=== PATIENT | female | born 1955 | race Hispanic/Latino ===

== ENCOUNTER 2017-05-22 20:06 | Inpatient (IN) | payer MEDICARE ==
[~2017-05-22] VITALS: Ht 154.9 cm; Wt 82.1 kg
--- NOTE | 2017-05-22 21:23 | Diagnostic Imaging Report ---
EXAM: CHEST SINGLE (PORTABLE), AP 1 view ORDER DATE: 05/22/2017 8:41 PM Time stamp on exam: 2103 hours INDICATION: Chest pain, shortness of breath COMPARISON: None FINDINGS: LINES/TUBES: None LUNGS: No consolidations or edema. PLEURA: No effusions or pneumothorax. HEART AND MEDIASTINUM: Normal size and contour. BONES AND SOFT TISSUES: No acute findings. IMPRESSION: No acute thoracic abnormality. Signed by: Dr. Laura Franklin M.D. on 05/22/2017 9:20 PM
[2017-05-22 23:02] LABS: BASOPHILS % 0.4 % (0.0-1.0); EOSINOPHILS # (AUTO) 0.3 (0.0-0.4); EOSINOPHILS % 3.7 % (0.0-6.0); HEMATOCRIT 32.2 % (34.2-44.1); HEMOGLOBIN 10.2 g/dL (12.0-16.0); LYMPHOCYTES % 39.7 % (18.0-39.1); MEAN CORPUSCULAR HEMOGLOBIN 32.6 pg (28-32); MEAN CORPUSCULAR HGB CONC 31.7 g/dL (31-35); MEAN CORPUSCULAR VOLUME 102.9 fL (81-99); MONOCYTES # (AUTO) 0.5 (0.2-0.8); NEUTROPHILS # (AUTO) 3.8 (2.1-6.9); NEUTROPHILS % 48.9 % (38.7-80.0); PLATELET COUNT 236 x10e3/uL (140-360); RED BLOOD COUNT 3.13 x10e6/uL (3.6-5.1); RED CELL DISTRIBUTION WIDTH 14.8 % (11.7-14.4)
[2017-05-22 23:28] LABS: ALBUMIN 3.8 g/dL (3.5-5.0); ALBUMIN/GLOBULIN RATIO 0.8 (0.8-2.0); CALCIUM 9.6 mg/dL (8.4-10.2); CREATININE, SERUM 9.9 mg/dL (0.57-1.11)
[2017-05-22 23:40] LABS: CREATINE KINASE MB 4.3 ng/mL (0-5.0)
[2017-05-22] MEDS ORDERED: DEXTROSE 50% SYRINGE 50 ML IV STA (23:42)
[2017-05-22] MEDS ORDERED: CALCIUM CHLORIDE 10% 1.36 MEQ/ML 10ML SYR IV STA (23:42)
[2017-05-22] MEDS ORDERED: SODIUM BICARBONATE 8.4% INJ 50 ML SYR IV STA (23:42)
[2017-05-22] MEDS ORDERED: INSULIN REGULAR, HUMAN 100 UNIT/1 ML 3ML VIAL IV ONE (23:45)
[2017-05-22] MEDS ORDERED: SOD POLYSTYRENE SULFONATE SUSP 15 GM/60 ML BTL PO ONE (23:45)
[2017-05-23] MEDS ORDERED: SODIUM CHLORIDE 0.9% 50ML 50 ML ONE (00:02)
[2017-05-23] MEDS ORDERED: ASPIRIN 81 MG CHEW TAB PO ONE (00:15)
[2017-05-23] MEDS ORDERED: NITROGLYCERIN 2% OINT 1 GM PKT TOP ONE (01:00)
[2017-05-23] MEDS: PROPOFOL IV EMULSION 10MG/ML 100 ML IV PRN ×2 (01:20→08:52)
--- NOTE | 2017-05-23 01:46 | Diagnostic Imaging Report ---
EXAM: CHEST SINGLE (PORTABLE), AP 1 view ORDER DATE: 05/23/2017 1:11 AM Time stamp on exam: 0133 hours INDICATION: Status post endotracheal tube placement COMPARISON: AP view of the chest May 22, 2017 FINDINGS: LINES/TUBES: Endotracheal tube terminates 4 cm above the iker. LUNGS: Interstitial edema, slightly increased from prior exam. Bibasilar atelectasis. PLEURA: No effusions or pneumothorax. HEART AND MEDIASTINUM: Stable appearance. BONES AND SOFT TISSUES: No acute findings. IMPRESSION: The endotracheal tube terminates 4 cm above the iker. Slight interval worsening interstitial edema. Signed by: Dr. Laura Franklin M.D. on 05/23/2017 1:43 AM
--- NOTE | 2017-05-23 04:21 | Diagnostic Imaging Report ---
EXAM: CT CHEST WO ORDER DATE: 05/23/2017 12:40 AM Time stamp on exam: 0356 hours INDICATION: Shortness of breath, respiratory distress COMPARISON: None TECHNIQUE: Multidetector CT scanning of the chest was performed. Coronal and sagittal multiplanar reformations were obtained. Routine protocol performed. IV Contrast: None CTDIvol has been reviewed. It is below the limits set by the Radiation Protocol Committee (RPC). FINDINGS: LUNGS AND AIRWAYS: The endotracheal tube is 3 cm above the iker. Bilateral interstitial thickening and faint bilateral groundglass opacities. Bibasilar bronchial thickening and peribronchial ground glass opacity/small consolidations. Similar findings in the posterior aspect of the bilateral upper lungs to a lesser extent. PLEURA: Small bilateral pleural effusions. HEART, MEDIASTINUM, VESSELS: The heart is within normal size limits. Dense coronary artery calcifications. No thoracic aortic aneurysm. UPPER ABDOMEN: Partially visualized moderate distention of the stomach. Tiny layering calcified gallstones. MUSCULOSKELETAL: No acute findings. IMPRESSION: Mild pulmonary edema and small bilateral pleural effusions. Possible superimposed aspiration in the dependent portions of the bilateral upper and lower lobes. Signed by: Dr. Laura Franklin M.D. on 05/23/2017 4:18 AM
--- NOTE | 2017-05-23 04:23 | Diagnostic Imaging Report ---
EXAM: VQ LUNG SCAN VENT PERFUSION DATE: 05/22/2017 12:00 AM Time stamp on exam: 0404 hours INDICATION: Shortness of breath, patient ventilated COMPARISON: AP view of the chest May 23, 2017 FINDINGS: No ventilation images obtained. Perfusion images of the lungs in multiple projections were obtained following intravenous administration of 6mCi of Tc-99m MAA. Distribution of tracer activity is mildly irregular throughout the lungs. There are no segmental perfusion defects of any size. IMPRESSION: Scan findings represent a very low probability for acute pulmonary embolic disease based on the PIOPED II criteria. Signed by: Dr. Laura Franklin M.D. on 05/23/2017 4:19 AM
[2017-05-23] MEDS ORDERED: SUCCINYLCHOLINE 200 MG/10 ML SYR IV ONE (04:30)
[2017-05-23] MEDS ORDERED: SODIUM CHLORIDE FLUSH 10 ML SYR INJ PRN (04:30)
[2017-05-23] MEDS ORDERED: ONDANSETRON HCL INJ 2 MG/ML VIAL IV PRN (04:30)
[2017-05-23] MEDS ORDERED: ETOMIDATE 2 MG/ML 10 ML INJ IV ONE (04:30)
[2017-05-23] MEDS ORDERED: DEXTROSE 50% SYRINGE 50 ML IV PRN (04:30)
--- OUTSIDE RECORDS SUMMARY | 2017-05-23 04:42 | XMS REPORT ---
Author Author [facility] Address Unknown Phone Unavailable Care Team Providers Care Office Asst Name Role Phone DANILO ALTAMIRANO Unavailable Unavailable Problems This patient has no known problems. Allergies, Adverse Reactions, Alerts This patient has no known allergies or adverse reactions. Medications This patient has no known medications. Results Test Description Test Time Test Comments Text Results Atomic Results Result Comments CHEST SINGLE (PORTABLE) [address] [address] Patient Name: OLGA SANCHEZ MR #: [id number] : 1955 Age/Sex: 61/F Req #: [id number] Adm Physician: Ordered by: DANILO ALTAMIRANO MD Report #: [id number] Location: ER Room/Bed: ___ Procedure: [id number] DX/CHEST SINGLE (PORTABLE) Exam Date: 05/23/17 Exam Time: 0130 REPORT STATUS: Signed EXAM: CHEST SINGLE (PORTABLE), AP 1 view ORDER DATE: 05/23/2017 1:11 AM Time stamp on exam: 0133 hours INDICATION: Status post endotracheal tube placement COMPARISON: AP view of the chest May 22, 2017 FINDINGS: LINES/TUBES : Endotracheal tube terminates 4 cm above the iker. LUNGS: Interstitial edema, slightly increased from prior exam. Bibasilar atelectasis. PLEURA : No effusions or pneumothorax. HEART AND MEDIASTINUM: Stable appearance. BONES AND SOFT TISSUES: No acute findings. IMPRESSION: The endotracheal tube terminates 4 cm above the iker. Slight interval worsening interstitial edema. Signed by: Dr. Anurag Franklin M.D. on 05/23/2017 1:43 AM Dictated By: ANURAG FRANKLIN MD 2 Transcribed By: CLOVIS on 142 COPY TO: DANILO ALTAMIRANO MD CT CHEST WO [place] [address] Patient Name: OLGA SANCHEZ MR #: [id number] : 1955 Age/Sex: 61/F Req #: [id number] Adm Physician: Ordered by: DANILO ALTAMIRANO MD Report # : [id number] Location: ER Room/Bed: Procedure: [id number] CT/CT CHEST WO Exam Date: Exam Time: REPORT STATUS: Signed EXAM: CT CHEST WO ORDER DATE: 05/23/2017 12:40 AM Time stamp on exam: 0356 hours INDICATION: Shortness of breath, respiratory distress COMPARISON: None TECHNIQUE: Multidetector CT scanning of the chest was performed. Coronal and sagittal multiplanar reformations were obtained. Routine protocol performed. IV Contrast: None CTDIvol has been reviewed. It is below the limits set by the Radiation Protocol Committee (RPC) . FINDINGS: LUNGS AND AIRWAYS: The endotracheal tube is 3 cm above the iker. Bilateral interstitial thickening and faint bilateral groundglass opacities. Bibasilar bronchial thickening and peribronchial ground glass opacity/small consolidations. Similar findings in the posterior aspect of the bilateral upper lungs to a lesser extent. PLEURA: Small bilateral pleural effusions. HEART, MEDIASTINUM, VESSELS: The heart is within normal size limits. Dense coronary artery calcifications. No thoracic aortic aneurysm. UPPER ABDOMEN: Partially visualized moderate distention of the stomach. Tiny layering calcified gallstones. MUSCULOSKELETAL: No acute findings. IMPRESSION: Mild pulmonary edema and small bilateral pleural effusions. Possible superimposed aspiration in the dependent portions of the bilateral upper and lower lobes. Signed by: Dr. Anurag Franklin M.D. on 05/23/2017 4:18 AM Dictated By: ANURAG FRANKLIN MD 7 Transcribed By: CLOVIS on 417 COPY TO: DANILO ALTAMIRANO MD CHEST SINGLE (PORTABLE) [place] [address] Patient Name: OLGA SANCHEZ MR #: [id number] : 1955 Age/Sex: 61/F Req #: [id number] Adm Physician: Ordered by: DANILO ALTAMIRANO MD Report #: [id number] Location: ER Room/Bed: ___ Procedure: [id number] DX/CHEST SINGLE (PORTABLE) Exam Date: 05/22/17 Exam Time: 2100 REPORT STATUS: Signed EXAM: CHEST SINGLE (PORTABLE), AP 1 view ORDER DATE: 05/22/2017 8:41 PM Time stamp on exam: 2103 hours INDICATION: Chest pain, shortness of breath COMPARISON: None FINDINGS: LINES/TUBES: None LUNGS: No consolidations or edema. PLEURA: No effusions or pneumothorax. HEART AND MEDIASTINUM: Normal size and contour. BONES AND SOFT TISSUES: No acute findings. IMPRESSION: No acute thoracic abnormality. Signed by: Dr. Anurag Franklin M.D. on 05/22/2017 9:20 PM Dictated By: ANURAG FRANKLIN MD 19 Transcribed By: CLOVIS on 05/22/172119 COPY TO: DANILO ALTAMIRANO MD VQ LUNG SCAN VENT PERFUSION [place] [address] Patient Name: OLGA SANCHEZ MR #: [id number] : 1955 Age/Sex: 61/F Req #: [id number] [facility] Physician: Ordered by: DANILO ALTAMIRANO MD Report #: [id number] Location: ER Room/Bed: ___ Procedure: [id number] NM/VQ LUNG SCAN VENT PERFUSION Exam Date: Exam Time: REPORT STATUS: Signed EXAM: VQ LUNG SCAN VENT PERFUSION DATE: 05/22/2017 12:00 AM Time stamp on exam: 0404 hours INDICATION: Shortness of breath, patient ventilated COMPARISON: AP view of the chest May 23, 2017 FINDINGS: No ventilation images obtained. Perfusion images of the lungs in multiple projections were obtained following intravenous administration of 6mCi of Tc-99m MAA. Distribution of tracer activity is mildly irregular throughout the lungs. There are no segmental perfusion defects of any size. IMPRESSION: Scan findings represent a very low probability for acute pulmonary embolic disease based on the PIOPED II criteria. Signed by: Dr. Anurag Franklin M.D. on 05/23/2017 4:19 AM Dictated By: ANURAG FRANKLIN MD 8 Transcribed By: CLOVIS on 418 COPY TO: DANILO ALTAMIRANO MD
[2017-05-23 05:03] LABS: BASOPHILS % 0.3 % (0.0-1.0); EOSINOPHILS # (AUTO) 0.2 (0.0-0.4); EOSINOPHILS % 2.2 % (0.0-6.0); HEMATOCRIT 30.6 % (34.2-44.1); HEMOGLOBIN 9.6 g/dL (12.0-16.0); LYMPHOCYTES # (AUTO) 2.2 (1.0-3.2); LYMPHOCYTES % 22.3 % (18.0-39.1); MEAN CORPUSCULAR HGB CONC 31.4 g/dL (31-35); MONOCYTES % 9.7 % (4.4-11.3); NEUTROPHILS # (AUTO) 6.4 (2.1-6.9); NEUTROPHILS % 65.1 % (38.7-80.0); PLATELET COUNT 206 x10e3/uL (140-360); RED CELL DISTRIBUTION WIDTH 15.2 % (11.7-14.4)
[2017-05-23 05:24] LABS: CREATINE KINASE MB 12.4 ng/mL (0-5.0)
[2017-05-23 05:59] LABS: ALBUMIN 3.4 g/dL (3.5-5.0); ALBUMIN/GLOBULIN RATIO 0.8 (0.8-2.0); ANION GAP 23.1 mmol/L (8-16); CALCIUM 9.7 mg/dL (8.4-10.2); CREATININE, SERUM 10.12 mg/dL (0.57-1.11)
[2017-05-23 06:00] LABS: POTASSIUM 6.1 mmol/L (3.5-5.1)
[2017-05-23] MEDS: INSULIN REGULAR, HUMAN 100 UNIT/1 ML 3ML VIAL SQ SCH ×4 (08:43→21:00)
[2017-05-23] MEDS ORDERED: CEFTRIAXONE SOD 1 GM VIAL IV SCH (10:00)
[2017-05-23] MEDS: ASPIRIN 300 MG SUPP PR SCH (10:20)
--- NOTE | 2017-05-23 11:10 | History and Physical ---
HPI: She is a 61-year-old female patient who has ESRD, patient on hemodialysis, diabetes mellitus, and hypertension, presented to the emergency room with chest pain and shortness of breath that started yesterday at 3 p.m. Patient was having central chest pain and subsequently, patient was admitted in the emergency room. While patient was in the emergency room, patient had acute respiratory distress and patient needed to be intubated in the emergency room as patient was having severe respiratory distress and patient was in flash pulmonary edema. PAST MEDICAL HISTORY: Diabetes mellitus, hypertension, and end-stage renal disease. PAST SURGICAL HISTORY: AV fistula. SOCIAL HISTORY: Denies smoking. Denies using alcohol. MEDICATIONS: See from the list. ALLERGIES: NO KNOWN DRUG ALLERGIES. FAMILY HISTORY: Diabetes mellitus. REVIEW OF SYSTEMS: Patient is orally intubated, not able to participate in review of system examinations. PHYSICAL EXAMINATION VITAL SIGNS: Temperature 99, pulse rate 92, [id number], blood pressure 140/70. HEENT: Normocephalic, atraumatic. Patient was orally intubated. NECK: JVD present. LUNGS: Bilateral equal fair air entry. Basal rales present. Rhonchi present. HEART: S1, S2 regular, systolic murmur present. ABDOMEN: Soft. Bowel sounds are present. NEUROLOGIC: No focal neurological deficit. EXTREMITIES: No edema. ADMITTING IMPRESSION AND DIAGNOSES 1. Acute respiratory failure with acute pulmonary edema. 2. Acute diastolic congestive heart failure, suspect ischemia. 3. Hyperkalemia. 4. Patient has possibility of aspiration. PLAN: Patient will be admitted with above diagnoses. Patient will have emergent hemodialysis. Patient will be on the ventilator and we will obtain pulmonary consultation with Dr. Collier and cardiology consultation with Dr. Lowe. Patient had a stat 2D echo done. Patient will be also given IV Rocephin and nephrology, Dr. Gong and Dr. Miramontes will dialyze the patient. Job#: [id number] VAS
--- NOTE | 2017-05-23 11:28 | Consultation ---
DATE OF CONSULTATION: May 23, 2017 CARDIOLOGY CONSULTATION REQUESTING PHYSICIAN: Dr. Scott REASON FOR CONSULTATION: Elevated troponin. HPI: This is a 61-year-old female that presented with shortness of breath. According to the medical record, she stated she was having pressure and tightness at the center of her chest with no radiation on a scale of 5 out of 10 that started yesterday, and it is still constant. She was brought to the emergency room for evaluation. In the ER, she was reintubated to maintain the airway. Troponin was elevated, and cardiology was consulted. She has a history of end-stage renal disease on dialysis. EKG showed normal sinus rhythm with non-ST abnormalities. BNP 865 and troponin 2.9. PAST MEDICAL HISTORY: Hypertension, diabetes, end-stage renal disease on dialysis. PAST SURGICAL HISTORY: AV fistula to the left arm. FAMILY HISTORY: Positive for hypertension. SOCIAL HISTORY: No smoking. No drinking. MEDICATIONS: See med list. ALLERGIES: SHE IS NOT ALLERGIC TO ANY MEDICATION. REVIEW OF SYSTEMS: Unable to obtain. She is intubated and sedated. PHYSICAL EXAMINATION VITALS: Temperature 98, heart rate 71, respirations 18, blood pressure 149/81, oxygen saturation 100% on mechanical ventilation. GENERAL: She is intubated and sedated. HEENT: Mucous membranes moist. NECK: Supple. LUNGS: Bilateral with decreased breath sounds. CARDIOVASCULAR: S1, S2 present. ABDOMEN: Soft. EXTREMITIES: No edema. NEUROLOGIC: Unable to assess, intubated and sedated. LABS: Sodium 143, potassium 6.1, chloride 103, CO2 23, BUN 74, creatinine 10.12. Glucose 124. White blood cells 9.80. Hemoglobin 9.6, hematocrit 30.6, platelets 206. IMPRESSION 1. Acute respiratory failure. 2. Elevated troponin. 3. Possible fluid overload. 4. Hypertension. 5. Diabetes. 6. End-stage renal disease on dialysis. 7. Pulmonary edema with small bilateral pleural effusions from x-ray. 8. Anemia of chronic disease. ASSESSMENT AND PLAN: She is intubated and sedated. Possible cardiac catheterization when stable. Elevated BNP could be related to renal. Will get an echo to assess the LV and valve function. She is pending dialysis for the high potassium. Further cardiac workup pending clinical course. Thank you for this consultation. Dictated by John Crews NP Job#: [id number] MH
--- NOTE | 2017-05-23 11:44 | Consultation ---
DATE OF CONSULTATION: PULMONARY CONSULTATION REASON FOR THE CONSULT: Ventilator management, ICU management. HPI: Ms. Bailey is a 61-year-old female who is intubated and sedated. The source of history is the chart. Patient has history of end-stage renal disease and is on hemodialysis, came in with shortness of breath and possibly was in fluid overload. She became suddenly short of breath. She was complaining of chest tightness and chest pressure in the emergency room and that started around 3 p.m.. She came to the emergency room at around 8 o'clock. She became lethargic and possibly passed out; however, never lost pulse and patient was intubated for respiratory failure, possible aspiration, and pulmonary edema. Currently, she is on a ventilator with FiO2 of 50%, PEEP of 0, and tidal volume of 500 and she is getting hemodialysis. REVIEW OF SYSTEMS: Unable to elicit any because the patient is intubated and sedated. PAST MEDICAL HISTORY: Hypertension, end-stage renal disease, patient has history of diabetes. PAST SURGICAL HISTORY: Unknown. SOCIAL HISTORY: Unknown history of smoking, not in the records and patient is intubated and sedated. FAMILY HISTORY: Unknown family history as patient is intubated and sedated. PHYSICAL EXAMINATION VITALS: Temperature 98.4, pulse of 74, blood pressure 134/80, respiratory rate of 20. She is on mechanical ventilator with FiO2 of 500, PEEP of 0, respiratory rate of 14. HEENT: Head atraumatic, normocephalic. NECK: Supple. No JVD. She is intubated. CHEST: Clear to auscultation bilaterally. Crackles in the bases. HEART: S1, S2 audible. No murmurs, gallops, or rub. ABDOMEN: Soft, nontender, nondistended. EXTREMITIES: No clubbing, cyanosis, or edema. NEUROLOGICAL: She is sedated, intubated on propofol. LABORATORY DATA: White count of 7.6, hemoglobin 10.2, platelets 236. Chemistry; sodium 143, potassium 6.1, chloride 103, BUN 74, creatinine 10.12. Troponin 2.918, CK-MB 12.40, CK 377, BNP 56. Chest CT, which was done in the emergency room I reviewed the images is showing mild evidence of pulmonary edema; however, showing atelectasis on the bases. I have reviewed the images, looks like that she probably aspirated. ASSESSMENT AND PLAN: Ms. Bailey is a 61-year-old female, came in with shortness of breath, chest pain, increased troponin. Patient became short of breath. CT of the chest showing evidence of bilateral lower lobe atelectasis versus aspiration, currently intubated and sedated. 1. Acute hypoxic respiratory failure. There is no blood gas and I will increase the PEEP to 5, reduce the tidal to 420, and keep the respiratory rate of 14. Patient was observed at bedside and she has been doing well on this setting. I will do an ABG. 2. Possible lty-CV-mkstaxddp myocardial infarction. As patient's troponin was high, cardiology has been consulted. 3. End-stage renal disease, fluid overload. Patient is getting hemodialysis. 4. Hyperkalemia. Patient will be getting hemodialysis. 5. Iv zosyn, DC rocephin 6. Continue the patient on propofol for sedation for now. Hopefully, we will start weaning in a.m. once the patient is stable. 7. Will start the patient on Pepcid for gastrointestinal prophylaxis. Critical care time spent 45 minutes. Job#: [id number] KONG GOMEZ
[2017-05-23 11:52] LABS: ABG PCO2 41 mmHg (41-51); ABG PH 7.45 (7.31-7.41); ABG PO2 146 mmHg (80-105)
[2017-05-23 11:53] LABS: ABG HCO3 29 mmol/L (23-28)
[2017-05-23 12:54] LABS: CREATINE KINASE MB 9.6 ng/mL (0-5.0)
--- NOTE | 2017-05-23 14:08 | Consultation ---
DATE OF CONSULTATION: May 23, 2017 RENAL CONSULT HISTORY OF PRESENT ILLNESS: This is a 61-year-old female with end-stage renal disease on hemodialysis Monday//Monday, who came in last night with complaints of shortness of breath since 3 p.m. While she was in the emergency room, she developed flash pulmonary edema and was intubated. PAST MEDICAL HISTORY: Includes 1. Hypertension. 2. Type 2 diabetes mellitus. 3. ESRD. PAST SURGICAL HISTORY: AV fistula. SOCIAL HISTORY: No smoking, no alcohol, no drugs. ALLERGIES: NO KNOWN ALLERGIES. MEDICATIONS: Please see list. REVIEW OF SYSTEMS: Unable to get from the patient. PHYSICAL EXAMINATION GENERAL: Patient is sedated, currently intubated. VITAL SIGNS: Systolic blood pressure 90. Pulse ox 100%. HEENT: Pupils equal, reactive to light and accommodation. NECK: No JVD, no bruit. LUNGS: No rhonchi, no rales. HEART: Regular rate and rhythm. No S3, no S4. ABDOMEN: Nontender, nondistended. No hepatosplenomegaly. EXTREMITIES: No clubbing, no cyanosis, no edema. LABS: White count 9.8, hemoglobin 9.6, hematocrit 30.6. Blood gas: pH 7.45, pCO2 of 41. Sodium 143, potassium 6.1, BUN 74, creatinine 10. CHEST X-RAY: Slight interval worsening with interstitial edema. CT OF CHEST: Mild pulmonary edema and small bilateral pleural effusion. Possible superimposed aspiration. LUNG SCAN: Very low pulmonary embolism. ASSESSMENT AND PLAN 1. End-stage renal disease with hyperlipidemia. The patient will be dialyzed today and monitored on blood pressure. 2. Pulmonary edema, question flash pulmonary edema. Will ultrafiltrate but is currently not tolerating more than 2.5 liters of ultrafiltration secondary to hypotension. 3. We will check for flu. 4. Currently troponin I at 2.9, CK 377. That was at 4 in the morning, but at 12:20 her troponin I is up to 6, CK-MB down to 9.6. We will follow. Cardiology and Pulmonary are following at this time. Job#: [id number] EV
[2017-05-23] MEDS: PIPER-TAZ 3.375 GM 50 ML IV SCH (16:07)
--- NOTE | 2017-05-23 16:29 | Diagnostic Imaging Report ---
PROCEDURE: A single AP view of the chest. COMPARISON: Chest x-ray 05/23/2017 at 1:33 INDICATIONS: S/P HEMODIALYSIS FINDINGS: Lines/tubes: Tip of the endotracheal tube is unchanged. Nasogastric tube is new and courses below the diaphragm. Lungs: Lungs are hypoinflated. Perihilar air space opacities are slightly increased. Pleura: There is no pleural effusion or pneumothorax. Heart and mediastinum: The heart and the mediastinum are unremarkable. Bones: No acute bony abnormality. IMPRESSION: 1. New NG tube tip coursing below the diaphragm. 2. Slight decrease in lung aeration. Slight increase in perihilar pulmonary edema. Dictated by: Tk Tay M.D. on 05/23/2017 at 16:28 Electronically approved by: Tk Tay M.D. on 05/23/2017 at 16:28
[2017-05-23] MEDS ORDERED: ENOXAPARIN SOD INJ 40 MG/0.4 ML SYR SC SCH (17:00)
[2017-05-24] VITALS (54 sets, daily range): BP systolic 70–162; BP diastolic 30–82
[2017-05-24] MEDS: PIPER-TAZ 3.375 GM 50 ML IV SCH ×2 (00:11→08:32)
[2017-05-24] MEDS: PROPOFOL IV EMULSION 10MG/ML 100 ML IV PRN (03:37)
[2017-05-24 06:04] LABS: BASOPHILS % 0.2 % (0.0-1.0); EOSINOPHILS # (AUTO) 0.1 (0.0-0.4); EOSINOPHILS % 0.7 % (0.0-6.0); HEMATOCRIT 27.6 % (34.2-44.1); HEMOGLOBIN 9.1 g/dL (12.0-16.0); LYMPHOCYTES # (AUTO) 1.7 (1.0-3.2); LYMPHOCYTES % 19.7 % (18.0-39.1); MEAN CORPUSCULAR VOLUME 97.2 fL (81-99); MONOCYTES # (AUTO) 0.9 (0.2-0.8); MONOCYTES % 9.9 % (4.4-11.3); PLATELET COUNT 163 x10e3/uL (140-360); RED BLOOD COUNT 2.84 x10e6/uL (3.6-5.1); RED CELL DISTRIBUTION WIDTH 15.3 % (11.7-14.4)
[2017-05-24 06:21] LABS: ALBUMIN 3.1 g/dL (3.5-5.0); ALBUMIN/GLOBULIN RATIO 0.8 (0.8-2.0); ANION GAP 19.7 mmol/L (8-16); CALCIUM 8.5 mg/dL (8.4-10.2); CREATININE, SERUM 6.67 mg/dL (0.57-1.11); POTASSIUM 3.7 mmol/L (3.5-5.1)
[2017-05-24] MEDS: INSULIN REGULAR, HUMAN 100 UNIT/1 ML 3ML VIAL SQ SCH (07:51)
[2017-05-24] MEDS: ASPIRIN 300 MG SUPP PR SCH (09:00)
[2017-05-24] MEDS ORDERED: LIDOCAINE HCL 2% LOCAL 20 ML VIAL ONE ×2 (09:11→09:44)
[2017-05-24] MEDS ORDERED: IOPAMIDOL 370 MG/ML 200 ML INFUS..BTL INJ ONE ×2 (09:11→09:21)
[2017-05-24] MEDS ORDERED: HEPARIN SOD/SOD CHLORIDE 2,000 ML ONE (09:11)
[2017-05-24] MEDS ORDERED: IOPAMIDOL 300MG/ML 50ML INFUS..BTL IV ONE (10:00)
[2017-05-24] MEDS ORDERED: PROPOFOL IV EMULSION 10 MG/ML 20 ML VIAL ONE (10:53)
[2017-05-24 11:25] LABS: CREATINE KINASE MB 1.6 ng/mL (0-5.0)
[2017-05-24] MEDS ORDERED: METOPROLOL TARTRATE 25 MG TAB PO SCH (17:00)
--- NOTE | 2017-05-24 17:43 | Operative Report ---
DATE OF PROCEDURE: May 24, 2017 PROCEDURES PERFORMED: Cardiac catheterization. INDICATIONS: Mye-DR-uyijbcxev myocardial infarction. DESCRIPTION OF PROCEDURE: After informed consent, patient was brought to the cardiac catheterization laboratory and placed on the table. Both groins were painted and draped in a sterile fashion. Lidocaine was injected in the right groin for local anesthesia. Right femoral artery was accessed by Seldinger technique, and a 5-Icelandic sheath was placed in the right femoral artery. Left main artery was cannulated using a JL4, 5-Icelandic catheter. Coronary angiogram was performed, and images were obtained in multiple views. The right coronary artery was cannulated using a 3DRC 5-Icelandic catheter. Coronary angiogram was performed, and images were obtained in multiple views. LV-gram was performed using a pigtail catheter. Patient had an arteriogram, and the arteriotomy site was closed using a Vascade closure device. Patient tolerated the procedure without any complications. REPORT: LEFT MAIN: Is of normal caliber and tapers off in its distal portion and has about a 50% distal lesion. LEFT ANTERIOR DESCENDING: Normal caliber. Has mild diffuse disease throughout its course with a short segment of 60% to 70% mid lesion. LEFT CIRCUMFLEX: Is of large caliber and has an 80% ostial lesion. The obtuse marginal branch is a large branch. The circumflex itself is a narrow branch after the obtuse marginal branch and has an 80% lesion after the origin of the obtuse marginal branch. RIGHT CORONARY ARTERY: Is of normal caliber, is diffusely diseased with diffuse luminal irregularities. Distally the artery tapers off and is a very narrow caliber vessel. The posterior descending artery is also a very narrow caliber vessel. LV-GRAM: Anterior wall hypokinesis is noted. Overall ejection fraction is about 50%. HEMODYNAMICS: The aortic pressure is 153/68. LV pressure 144/11. LVEDP is 14. PLAN: CABG. Job#: [id number] DARSHANA GOMEZ
[2017-05-24] MEDS ORDERED: DEXTROSE 50% SYRINGE 50 ML IV PRN (17:45)
[2017-05-24] MEDS ORDERED: PROPOFOL IV EMULSION 10 MG/ML 20 ML VIAL IV SCH (18:00)
[2017-05-24] MEDS ORDERED: PROPOFOL IV EMULSION 10MG/ML 100 ML ONE (18:28)
[2017-05-24] MEDS ORDERED: PROPOFOL IV EMULSION 10 MG/ML 20 ML VIAL IV PRN (19:45)
[2017-05-24] MEDS ORDERED: PROPOFOL IV EMULSION 10MG/ML 100 ML IV SCH (20:00)
[2017-05-24] MEDS ORDERED: ACETAMINOPHEN 325 MG/10 ML UDC NG PRN (20:30)
[2017-05-24] MEDS ORDERED: PROPOFOL IV EMULSION 10MG/ML 100 ML IV PRN (20:45)
[2017-05-24] MEDS ORDERED: ATORVASTATIN 20 MG TAB NG SCH (21:00)
[2017-05-24] MEDS ORDERED: INSULIN REGULAR, HUMAN 100 UNIT/1 ML 3ML VIAL SQ SCH (21:00)
[2017-05-24] MEDS ORDERED: PIPER-TAZ 3.375 GM 50 ML IV SCH (22:00)
[2017-05-25] MEDS ORDERED: INSULIN REGULAR, HUMAN 100 UNIT/1 ML 3ML VIAL SQ SCH
[2017-05-25] MEDS ORDERED: ASPIRIN 325 MG TAB NG SCH (09:00)
[2017-05-25] MEDS ORDERED: METOPROLOL TARTRATE 25 MG TAB PO SCH (09:00)
== END 2017-05-24 23:50 | disposition short-term general hospital (02) | DRG 280 ==
LOC: ER 20:06 → ICU 05-23 04:34 → UNDOADMIN 05-23 04:39 → ERHOLD 05-23 04:39 → ICU 05-23 13:55 → ERHOLD 05-23 13:55 → UNDOADMIN 05-24 13:16 → ICU 05-24 13:16 → UNDODISIN 05-24 23:50
PROVIDERS: ADMIT Internal Medicine; ATTEND Internal Medicine
PROC: 5A1935Z Respiratory Ventilation, Less than 24 Consecutive Hours (ICD-10-PCS; 2017-05-23)
PROC: 0BH17EZ Insertion of Endotracheal Airway into Trachea, Via Natural or Artificial Opening (ICD-10-PCS; 2017-05-23)
PROC: 5A1D70Z Performance of Urinary Filtration, Intermittent, Less than 6 Hours Per Day (ICD-10-PCS; 2017-05-23)
PROC: B2111ZZ Fluoroscopy of Multiple Coronary Arteries using Low Osmolar Contrast (ICD-10-PCS; principal; 2017-05-24)
PROC: 4A023N7 Measurement of Cardiac Sampling and Pressure, Left Heart, Percutaneous Approach (ICD-10-PCS; principal; 2017-05-24)
PROC: B2151ZZ Fluoroscopy of Left Heart using Low Osmolar Contrast (ICD-10-PCS; 2017-05-24)
DX: I21.4 Non-ST elevation (NSTEMI) myocardial infarction (principal); I50.33 Acute on chronic diastolic (congestive) heart failure; J96.01 Acute respiratory failure with hypoxia; I13.2 Hypertensive heart and chronic kidney disease with heart failure and with stage 5 chronic kidney disease, or end stage renal disease; N18.6 End stage renal disease; E11.22 Type 2 diabetes mellitus with diabetic chronic kidney disease; I27.9 Pulmonary heart disease, unspecified; Z99.2 Dependence on renal dialysis; Z79.4 Long term (current) use of insulin; E87.5 Hyperkalemia; D63.8 Anemia in other chronic diseases classified elsewhere; E87.8 Other disorders of electrolyte and fluid balance, not elsewhere classified; I25.10 Atherosclerotic heart disease of native coronary artery without angina pectoris
CPT/HCPCS: 31500; 36140; 36415; 36600; 71045; 71250; 77002; 78582; 80053; 82550; 82553; 82805; 82948; 83880; 84484; 85025; 85379; 87040; 87086; 87340; 87400; 93005; 93306; 93452; 93458; 94002; 94003; 99285; J1650; J2001; J2543; Q9967

== ENCOUNTER 2018-03-09 17:24 | Emergency (ER) | payer SELFPAY ==
[~2018-03-09] VITALS: Ht 154.9 cm; Wt 82.1 kg
--- OUTSIDE RECORDS SUMMARY | 2018-03-09 17:27 | XMS REPORT | Clinical Summary ---
Author Author [facility] Organization [facility] Address Unknown Phone Unavailable Care Team Providers Care Tie Knitter Helper Name Role Phone Leo Jeter MD PCP Allergies Comments Active Allergy Reactions Severity Noted Date Ciprofloxacin 05/31/2017 Medications End Date Status Medication Sig Dispensed Refills Start Date Active hydrALAZINE (APRESOLINE) Take 50 mg by 0 50 MG tablet mouth 3 (three) times a day. 07/06/2017 atorvastatin (LIPITOR) 40 Take 1 tablet 30 tablet 0 MG tablet (40 mg total) 8 by mouth nightly for 30 days. 07/06/2017 metoprolol tartrate Take 1 tablet 60 tablet 0 (LOPRESSOR) 25 mg tablet (25 mg total) 8 by mouth 2 (two) times a day for 30 days. 07/06/2017 omega-3 acid ethyl esters Take 2 120 capsule 0 (LOVAZA) 1 gram capsule capsules (2 g 8 total) by mouth 2 (two) times a day for 30 days. 07/06/2017 aspirin 81 mg chewable Chew 1 tablet 30 tablet 0 tablet (81 mg total) 8 daily for 30 days. 07/06/2017 insulin 70/30 NPH and Inject 30 10 mL 12 regular human (NovoLIN Units under 8 70/30 U-100 Insulin) 100 the skin 3 unit/mL (70-30) injection (three) times a day for 30 days. Active Problems Problem Noted Date Uncontrolled type 2 diabetes mellitus with chronic kidney disease on 06/02/2017 chronic dialysis, with long-term current use of insulin Other hyperlipidemia 06/02/2017 S/P CABG x 2 05/31/2017 Pulmonary insufficiency 05/25/2017 NSTEMI (non-ST elevated myocardial infarction) 05/25/2017 CAD, multiple vessel 05/25/2017 ESRD on hemodialysis 05/25/2017 Anemia associated with chronic renal failure 05/25/2017 Essential hypertension 05/25/2017 Coronary artery disease 05/25/2017 Resolved Problems Problem Noted Date Resolved Date Coffee ground material from NGT 05/25/2017 05/31/2017 Encounters Care Team Description Date Type Specialty Nathaniel FerrellCHRISTOPHER 05/31/2017 Anesthesia Cardiothoracic Surgery Event Danilo Lala MD CABx2: MOREJON-->LAD, Ao-->OM 05/31/2017 Surgery Cardiothoracic Surgery Laurel Warren 05/31/2017 Telephone Cardiology Danilo Lala MD 05/26/2017 Documentation Cardiovascular Daniel Alonso MD Patel, Sachin P., MD Pulmonary insufficiency (Primary Dx) 05/25/2017 Hospital Cardiology - Encounter 06/06/2017 after 03/08/2017 Family History Medical History Relation Name Comments Diabetes Other Relation Name Status Comments Other Social History Date Tobacco Use Types Packs/Day Years Used Former Smoker Cigarettes 1 Smokeless Tobacco: Never Used Comments: quit 20 yrs. ago Alcohol Use Drinks/Week oz/Week Comments No Sex Assigned at Date Recorded Not on file Industry Job Start Date Occupation Not on file Not on file Not on file Travel End Travel History Travel Start No recent travel history available. Last Filed Vital Signs Time Taken Vital Sign Reading 06/06/2017 11:00 AM CDT Blood Pressure 133/65 06/06/2017 11:00 AM CDT Pulse 66 06/06/2017 11:00 AM CDT Temperature 36 C (96.8 F) 06/06/2017 11:00 AM CDT Respiratory Rate 16 06/06/2017 3:18 AM CDT Oxygen Saturation 97% - Inhaled Oxygen - Concentration 06/06/2017 4:20 AM CDT Weight 76.7 kg (169 lb 3.2 oz) 05/31/2017 11:44 AM MOTOR INSTALLER Height 157.5 cm (5' 2") 06/06/2017 4:20 AM CDT Body Mass Index 30.95 Plan of Treatment Health Maintenance Due Date Last Done Comments DIABETIC RETINAL EYE EXAM 1956 DIABETIC FOOT EXAM 1966 CERVICAL CANCER SCREENING 1977 BREAST CANCER SCREENING 2006 COLON CANCER SCREENING 2006 SHINGLES VACCINES (1 of 2006 2) INFLUENZA VACCINE 10/25/2017 Implants Device Identifier Shelf Expiration Date Model / Serial / Lot Implanted Type Area Manufactur er 02/28/2019 [id number] / / Lead Pace Phu Mycrdl Unipol Tmpry Cardiovasc N/A: N/A [employer] Streamline - [id number] ular [place] - Implanted: Qty: 1 on 05/31/2017 by Implants CARDIAC Danilo Lala MD SRGRY 02/28/2019 [id number] / / Lead Pace Phu Mycrdl Unipol Tmpry Cardiovasc N/A: N/A [employer] Streamline - [id number] ular [place] - Implanted: Qty: 1 on 05/31/2017 by Implants CARDIAC Danilo Lala MD SRGRY 02/08/2019 [id number] / / Lead Pace Phu Mycrdl Unipol Tmpry Cardiovasc N/A: N/A [employer] Streamline - [id number] ular [place] - Implanted: Qty: 1 on 05/31/2017 by Implants CARDIAC Danilo Lala MD SRGRY 02/28/2019 [id number] / / Lead Pace Phu Mycrdl Unipol Tmpry Cardiovasc N/A: N/A [employer] Streamline - [id number] ular [place] - Implanted: Qty: 1 on 05/31/2017 by Implants CARDIAC Danilo Lala MD SRGRY 10/11/2021 [id number] / / Clip Ligtng Weck Hemoclip Plus W/ Medical N/A: N/A TELEFLEX Tape Ti Med - [id number] Clips for MEDICAL Implanted: Qty: 1 on 05/31/2017 by Internal Danilo Lala MD Use 01/10/2022 [id number] / / Clip Ligtng [place] Hemoclip Plus W/ Medical N/A: N/A TELEFLEX Tape Ti Lg - [id number] Clips for MEDICAL Implanted: Qty: 1 on 05/31/2017 by Internal Danilo Lala MD Use 08/24/2021 [id number] / / Drain Wnd 19fr Rnd Hbls W/ 1/4in Surgical N/A: N/A ETHICON Bendbl Trocar Kelly Ashutosh Wht - Implants; DIV OF [id number] Expanders; ANN & Implanted: Qty: 1 on 05/31/2017 by Extenders; Danilo Cutler MD Surgical Wires 02/21/2022 [id number] / / [id number] [place] Perph Vasclr Ptfe 1.2x10cm Vascular N/A: N/A BARD 1.65mm - [id number] Graft PERIPHERAL Implanted: Qty: 1 on 05/31/2017 by VASCULAR Danilo Lala MD Procedures Comments Procedure Name Priority Date/Time Associated Diagnosis POC GLUCOSE Routine 06/06/2017 12:25 PM CDT POC GLUCOSE Routine 06/06/2017 10:12 AM CDT POC GLUCOSE Routine 06/05/2017 9:06 PM CDT POC GLUCOSE Routine 06/05/2017 6:33 PM CDT HEMODIALYSIS Routine 06/05/2017 3:59 PM CDT POC GLUCOSE Routine 06/05/2017 12:36 PM CDT POC GLUCOSE Routine 06/05/2017 8:02 AM CDT ZZESTIMATED GFR Routine 06/05/2017 4:00 AM CDT HC COMPLETE BLD COUNT Routine 06/05/2017 W/AUTO DIFF 4:00 AM CDT BASIC METABOLIC PANEL Routine 06/05/2017 4:00 AM CDT POC GLUCOSE Routine 06/04/2017 8:44 PM CDT POC GLUCOSE Routine 06/04/2017 5:25 PM CDT POC GLUCOSE Routine 06/04/2017 12:03 PM CDT POC GLUCOSE Routine 06/04/2017 7:37 AM CDT POC GLUCOSE Routine 06/04/2017 6:26 AM CDT ZZESTIMATED GFR Routine 06/04/2017 4:00 AM CDT LIPID PANEL Routine 06/04/2017 4:00 AM CDT T4, FREE Routine 06/04/2017 4:00 AM CDT THYROID STIMULATING Routine 06/04/2017 HORMONE 4:00 AM CDT VITAMIN D 25 HYDROXY Routine 06/04/2017 LEVEL 4:00 AM CDT HC COMPLETE BLD COUNT Routine 06/04/2017 W/AUTO DIFF 4:00 AM CDT BASIC METABOLIC PANEL Routine 06/04/2017 4:00 AM CDT POC GLUCOSE Routine 06/03/2017 6:39 PM MOTOR INSTALLER POC GLUCOSE Routine 06/03/2017 6:14 PM MOTOR INSTALLER HEMODIALYSIS Routine 06/03/2017 2:41 PM MOTOR INSTALLER HC COMPLETE BLD COUNT Routine 06/03/2017 W/AUTO DIFF 2:17 PM MOTOR INSTALLER POC GLUCOSE Routine 06/03/2017 11:33 AM MOTOR INSTALLER ECG 12-LEAD Routine 06/03/2017 8:01 AM MOTOR INSTALLER POC GLUCOSE Routine 06/03/2017 7:12 AM MOTOR INSTALLER ZZESTIMATED GFR Routine 06/03/2017 4:00 AM MOTOR INSTALLER BASIC METABOLIC PANEL Routine 06/03/2017 4:00 AM MOTOR INSTALLER POC GLUCOSE Routine 06/02/2017 8:50 PM MOTOR INSTALLER POC GLUCOSE Routine 06/02/2017 6:02 PM MOTOR INSTALLER POC GLUCOSE Routine 06/02/2017 12:00 PM MOTOR INSTALLER ECG 12-LEAD Routine 06/02/2017 8:49 AM MOTOR INSTALLER POC GLUCOSE Routine 06/02/2017 7:05 AM MOTOR INSTALLER CBC HEMOGRAM Routine 06/02/2017 4:00 AM MOTOR INSTALLER ZZESTIMATED GFR Routine 06/02/2017 12:00 AM MOTOR INSTALLER PHOSPHORUS LEVEL Routine 06/02/2017 12:00 AM MOTOR INSTALLER IONIZED CALCIUM Routine 06/02/2017 12:00 AM MOTOR INSTALLER MAGNESIUM LEVEL Routine 06/02/2017 12:00 AM MOTOR INSTALLER BASIC METABOLIC PANEL Routine 06/02/2017 12:00 AM MOTOR INSTALLER POC GLUCOSE Routine 06/01/2017 7:29 PM MOTOR INSTALLER POC GLUCOSE Routine 06/01/2017 6:08 PM MOTOR INSTALLER HEMODIALYSIS Routine 06/01/2017 1:40 PM MOTOR INSTALLER POC GLUCOSE Routine 06/01/2017 11:39 AM MOTOR INSTALLER XR CHEST 1 VW PORTABLE STAT 06/01/2017 9:39 AM MOTOR INSTALLER POC GLUCOSE Routine 06/01/2017 7:28 AM MOTOR INSTALLER XR CHEST 1 VW PORTABLE Routine 06/01/2017 7:05 AM MOTOR INSTALLER POTASSIUM, SYRINGE Routine 06/01/2017 6:26 AM MOTOR INSTALLER ECG 12-LEAD Routine 06/01/2017 5:14 AM MOTOR INSTALLER POC GLUCOSE Routine 06/01/2017 4:03 AM MOTOR INSTALLER POC GLUCOSE Routine 06/01/2017 1:41 AM MOTOR INSTALLER HC COMPLETE BLD COUNT Routine 06/01/2017 W/AUTO DIFF 1:15 AM MOTOR INSTALLER ZZESTIMATED GFR Routine 06/01/2017 12:51 AM MOTOR INSTALLER IONIZED CALCIUM Routine 06/01/2017 12:51 AM MOTOR INSTALLER PHOSPHORUS LEVEL Routine 06/01/2017 12:51 AM MOTOR INSTALLER MAGNESIUM LEVEL Routine 06/01/2017 12:51 AM MOTOR INSTALLER BASIC METABOLIC PANEL Routine 06/01/2017 12:51 AM MOTOR INSTALLER PARTIAL THROMBOPLASTIN Routine 06/01/2017 TIME (PTT) 12:30 AM MOTOR INSTALLER PROTHROMBIN TIME WITH INR Routine 06/01/2017 12:30 AM MOTOR INSTALLER POC GLUCOSE Routine 06/01/2017 12:22 AM MOTOR INSTALLER ECG 12-LEAD Routine 05/31/2017 8:23 PM MOTOR INSTALLER POC GLUCOSE Routine 05/31/2017 7:53 PM MOTOR INSTALLER XR CHEST 1 VW PORTABLE Routine 05/31/2017 7:48 PM MOTOR INSTALLER IONIZED CALCIUM, ARTERIAL Routine 05/31/2017 6:32 PM MOTOR INSTALLER ARTERIAL BLOOD GAS Routine 05/31/2017 6:32 PM MOTOR INSTALLER PARTIAL THROMBOPLASTIN Routine 05/31/2017 TIME (PTT) 6:32 PM MOTOR INSTALLER PROTHROMBIN TIME WITH INR Routine 05/31/2017 6:32 PM MOTOR INSTALLER HC COMPLETE BLD COUNT Routine 05/31/2017 W/AUTO DIFF 6:32 PM MOTOR INSTALLER ZZESTIMATED GFR Routine 05/31/2017 6:21 PM MOTOR INSTALLER PHOSPHORUS LEVEL Routine 05/31/2017 6:21 PM MOTOR INSTALLER MAGNESIUM LEVEL Routine 05/31/2017 6:21 PM MOTOR INSTALLER BASIC METABOLIC PANEL Routine 05/31/2017 6:21 PM MOTOR INSTALLER POC GLUCOSE Routine 05/31/2017 6:20 PM MOTOR INSTALLER GLUCOSE LEVEL, SYRINGE STAT 05/31/2017 5:45 PM MOTOR INSTALLER MAGNESIUM LEVEL STAT 05/31/2017 5:45 PM MOTOR INSTALLER HEMOGLOBIN, SYRINGE STAT 05/31/2017 5:45 PM MOTOR INSTALLER IONIZED CALCIUM, ARTERIAL STAT 05/31/2017 5:45 PM MOTOR INSTALLER POTASSIUM, SYRINGE STAT 05/31/2017 5:45 PM MOTOR INSTALLER SODIUM LEVEL, SYRINGE STAT 05/31/2017 5:45 PM MOTOR INSTALLER ARTERIAL BLOOD GAS, STAT 05/31/2017 CORRECTED 5:45 PM MOTOR INSTALLER PLATELET COUNT STAT 05/31/2017 4:54 PM MOTOR INSTALLER PROTHROMBIN TIME WITH INR STAT 05/31/2017 4:54 PM MOTOR INSTALLER FIBRINOGEN STAT 05/31/2017 4:54 PM MOTOR INSTALLER IONIZED CALCIUM, ARTERIAL STAT 05/31/2017 4:54 PM MOTOR INSTALLER GLUCOSE LEVEL, SYRINGE STAT 05/31/2017 4:54 PM MOTOR INSTALLER HEMOGLOBIN, SYRINGE STAT 05/31/2017 4:54 PM MOTOR INSTALLER POTASSIUM, SYRINGE STAT 05/31/2017 4:54 PM MOTOR INSTALLER SODIUM LEVEL, SYRINGE STAT 05/31/2017 4:54 PM MOTOR INSTALLER ARTERIAL BLOOD GAS, STAT 05/31/2017 CORRECTED 4:54 PM MOTOR INSTALLER TRANSFUSE RED BLOOD CELLS Routine 05/31/2017 4:19 PM MOTOR INSTALLER IONIZED CALCIUM, ARTERIAL STAT 05/31/2017 4:12 PM MOTOR INSTALLER GLUCOSE LEVEL, SYRINGE STAT 05/31/2017 4:12 PM MOTOR INSTALLER POTASSIUM, SYRINGE STAT 05/31/2017 4:12 PM MOTOR INSTALLER HEMOGLOBIN, SYRINGE STAT 05/31/2017 4:12 PM MOTOR INSTALLER SODIUM LEVEL, SYRINGE STAT 05/31/2017 4:12 PM MOTOR INSTALLER ARTERIAL BLOOD GAS, STAT 05/31/2017 CORRECTED 4:12 PM MOTOR INSTALLER TRANSFUSE RED BLOOD CELLS Routine 05/31/2017 3:49 PM MOTOR INSTALLER GLUCOSE LEVEL, SYRINGE STAT 05/31/2017 3:42 PM MOTOR INSTALLER IONIZED CALCIUM, ARTERIAL STAT 05/31/2017 3:42 PM MOTOR INSTALLER HEMOGLOBIN, SYRINGE STAT 05/31/2017 3:42 PM MOTOR INSTALLER POTASSIUM, SYRINGE STAT 05/31/2017 3:42 PM MOTOR INSTALLER SODIUM LEVEL, SYRINGE STAT 05/31/2017 3:42 PM MOTOR INSTALLER ARTERIAL BLOOD GAS, STAT 05/31/2017 CORRECTED 3:42 PM MOTOR INSTALLER GLUCOSE LEVEL, SYRINGE STAT 05/31/2017 3:15 PM MOTOR INSTALLER IONIZED CALCIUM, ARTERIAL STAT 05/31/2017 3:15 PM MOTOR INSTALLER HEMOGLOBIN, SYRINGE STAT 05/31/2017 3:15 PM MOTOR INSTALLER POTASSIUM, SYRINGE STAT 05/31/2017 3:15 PM MOTOR INSTALLER ARTERIAL BLOOD GAS, STAT 05/31/2017 CORRECTED 3:15 PM MOTOR INSTALLER SODIUM LEVEL, SYRINGE STAT 05/31/2017 3:15 PM MOTOR INSTALLER ANESTHESIA KAYLEN Routine 05/31/2017 2:42 PM MOTOR INSTALLER Procedure Note - Miguel Oro MD - 05/31/2017 2:42 PM MOTOR INSTALLER Procedure Performed: KAYLEN Start Time: End Time: Preanesth esia Checklist: Patient identified , IV assessed, risks and benefits discussed, monitors and equipment assessed, procedure being performed at surgeon's request, anesthesia consent obtained. General Procedure Informatio n Diagnostic Indication s for Echo: hemodynami c monitoring Physician Requesting Echo: DANILO LALA Location performed: OR Intubated Bite block placed Heart visualized Probe Insertion: Easy Probe Type: Multiplane Modalities : Color flow mapping, continuous wave Doppler and pulse wave Doppler Echocardi ographic and Doppler Measuremen ts Ventricle s Right Ventricle: Cavity size normal. Hypertroph y not present. Thrombus not present. Global function normal. Left Ventricle: Cavity size normal. Thrombus not present. Ejection Fraction 50%. Valves Aortic Valve: Annulus normal. Stenosis not present. Regurgitat ion absent. Leaflets normal. Leaflet motions normal. Mitral Valve: Annulus normal. Stenosis not present. Regurgitat ion +1. Leaflets normal. Leaflet motions normal. Tricuspid Valve: Annulus normal. Stenosis not present. Regurgitat ion +1. Leaflets normal. Leaflet motions normal. Aorta Ascending Aorta: Size normal. Dissection not present. Plaque thickness less than 3 mm. Mobile plaque not present. Aortic Arch: Size normal. Dissection not present. Plaque thickness less than 3 mm. Mobile plaque not present. Descending Aorta: Size normal. Dissection not present. Mobile plaque not present. Atria Right Atrium: Size normal. Spontaneou s echo contrast not present. Thrombus not present. Tumor not present. Device not present. Left Atrium: Size dilated. Spontaneou s echo contrast not present. Thrombus not present. Tumor not present. Device not present. Left atrial appendage normal. Septa Atrial Septum: Intra-atri al septal morphology normal. Ventricul ar Septum: Intra-vent ricular septum morphology normal. Other Findings Pericardiu m: normal Pleural Effusion: none Anesthesia Informatio n Performed with residents and CRNAs Anesthesio logist: MIGUEL ORO Resident/ DIPLOMATIC INTERPRETER/AA: MARILEE MCMILLAN Echocardi ogram Comments: Pre op: Normal LV size and function. EF 50-55%. Normal RV size and function. Mildly dilated LA. Trileaflet AV with no or AI. Trace MR and trace TR. Mild MAC. No pericardia l effusion or aortic dissection seen. GLUCOSE LEVEL, SYRINGE STAT 05/31/2017 2:01 PM MOTOR INSTALLER IONIZED CALCIUM, ARTERIAL STAT 05/31/2017 2:01 PM MOTOR INSTALLER HEMOGLOBIN, SYRINGE STAT 05/31/2017 2:01 PM MOTOR INSTALLER POTASSIUM, SYRINGE STAT 05/31/2017 2:01 PM MOTOR INSTALLER SODIUM LEVEL, SYRINGE STAT 05/31/2017 2:01 PM MOTOR INSTALLER ARTERIAL BLOOD GAS, STAT 05/31/2017 CORRECTED 2:01 PM MOTOR INSTALLER PA CATHETER Routine 05/31/2017 1:45 PM MOTOR INSTALLER Procedure Note - Miguel Oro MD - 05/31/2017 1:45 PM MOTOR INSTALLER PA catheter Performed by: MIGUEL ORO Authorized by: MIGUEL ORO Procedure details: CENTRAL LINE Routine 05/31/2017 1:35 PM MOTOR INSTALLER Procedure Note - Miguel Oro MD - 05/31/2017 1:35 PM MOTOR INSTALLER Central line Performed by: MIGUEL ORO Authorized by: MIGUEL ORO Patient Location: OR Staff: Anesthesio logist: MIGUEL ORO Resident/C RNA/AA: NATHANIEL FERRELL Performed by: Resident/C RNA/AA and anesthesio logist Preprocedu re:patient identified , IV checked, site and side verified, risks and benefits discussed, procedure verified, surgical consent complete, patient position confirmed, monitors and equipment checked and pre-op evaluation complete MSBT: antiseptic used during central venous catheter insertion, all elements of maximal sterile barrier technique followed, hand hygiene performed prior to central venous catheter insertion, cap/gown used by other personnel during central venous catheter insertion, solutions labeled and all ports not used during insertion clamped Indication s: Indication s: Central pressure monitoring and vascular access Anesthesia : Anesthesia : General Procedure details: Patient position: Trendelenb urg Catheter Type: Double lumen Catheter Size: 9 Fr Catheter Site: subclavian vein Catheter site laterality : Left Ultrasound guidance used: Yes Ultrasound image saved: Yes Number of attempts: 1 Successful placement: Yes Guidewire removal witnessed by: MIGUEL ORO Post-proce dure: Post-proce dure: line sutured, sterile dressing applied per protocol and ports flushed with saline Post-proce dure: Blood cleaned with CHG and sterile caps on all hubs Assessment : Blood return through all ports and free fluid flow Patient tolerance: Patient tolerated the procedure well with no immediate complicati ons Notes: Unsuccessf ul R IJ attempt (unable to pass wire with good flow), so aborted and L subclavian placed ARTERIAL LINE Routine 05/31/2017 1:21 PM MOTOR INSTALLER Procedure Note - Nathaniel Ferrell CRNA - 05/31/2017 1:21 PM MOTOR INSTALLER Arterial line Performed by: NATHANIEL FERRELL Authorized by: MIGUEL ORO Patient Location: Pre-op (Placed by resident in preop area) Start Time: 05/31/2017 12:45 PM Staff: Performed by: Resident/C ORIANA/AA Pre-proced ure: patient identified , IV checked, site and side verified, risks and benefits discussed, procedure verified, surgical consent complete, patient position confirmed, monitors and equipment checked and pre-op evaluation complete MSBT: antiseptic used, all elements of maximal sterile barrier technique followed, hand hygiene performed, cap/gown used by other personnel and solutions labeled Indication s: Indication s: multiple ABGs and hemodynami c monitoring Anesthesia : Anesthesia : Local infiltrati on Procedure Details: Arterial Line placement: Placed pre-induct ion Line placement site: Radial Line placement side: Right Arterial line gauge: 20 G Number of attempts: 1 Post-proce dure: Post-proce dure: Sterile dressing applied Post procedure circulatio n, sensation, movement: Normal Patient tolerance: Patient tolerated the procedure well with no immediate complicati ons [place] AN ELECTIVE Routine 05/31/2017 ENDOTRACHEAL AIRWAY 1:20 PM MOTOR INSTALLER Procedure Note - Nathaniel Ferrell CRNA - 05/31/2017 1:20 PM MOTOR INSTALLER Airway Date/Time: 05/31/2017 1:20 PM Performed by: NATHANIEL FERRELL Authorized by: MIGUEL ORO Location: OR Urgency: Elective Difficult Airway: No Anesthesio logist: MIGUEL ORO Resident/C ORIANA/AA: NATHANIEL FERRELL Performed by: /Deborah GASTELUM/SHAKA Preoxygena juan with 100% O2: Yes C-spine Precaution s Maintained Throughout : Yes Mask Ventilatio n: Easy mask Final Airway Type: Endotrache al airway Final Endotrache al Airway: ETT Cuffed: Yes Technique Used: Direct laryngosco py Devices/Me thods Used in Placement: Intubatin g stylet Insertion Site: Oral Blade Type: Flores Laryngosco pe Blade/Vide olaryngosc ope Blade Size: 2 ETT Size (mm): 8.0 Cuff at minimum occlusion pressure: Yes Measured from: Lips ETT to Lips (cm): 20 Placement Verified by: CO2 detection, direct visualizat ion and equal breath sounds Laryngosco pic view: Grade I - full view of glottis Rapid Sequence Induction (RSI): No Modified RSI: No Number of Attempts at Approach: 1 Pt intubated without difficulty or trauma POC GLUCOSE Routine 05/31/2017 12:56 PM MOTOR INSTALLER ARTERIAL BLOOD GAS STAT 05/31/2017 9:40 AM MOTOR INSTALLER RESPIRATORY PATHOGEN Routine 05/31/2017 PANEL 9:35 AM MOTOR INSTALLER POTASSIUM LEVEL STAT 05/31/2017 8:35 AM MOTOR INSTALLER POC GLUCOSE Routine 05/31/2017 7:57 AM MOTOR INSTALLER POC GLUCOSE Routine 05/31/2017 5:43 AM MOTOR INSTALLER ZZESTIMATED GFR Routine 05/31/2017 5:32 AM MOTOR INSTALLER HC COMPLETE BLD COUNT Routine 05/31/2017 W/AUTO DIFF 5:32 AM MOTOR INSTALLER BASIC METABOLIC PANEL Routine 05/31/2017 5:32 AM MOTOR INSTALLER ECG 12-LEAD STAT 05/30/2017 11:05 PM MOTOR INSTALLER CK-MB Routine 05/30/2017 10:49 PM MOTOR INSTALLER CREATINE KINASE, TOTAL Routine 05/30/2017 (CPK) 10:49 PM MOTOR INSTALLER TROPONIN Routine 05/30/2017 10:49 PM MOTOR INSTALLER XR CHEST 1 VW PORTABLE STAT 05/30/2017 8:53 PM MOTOR INSTALLER POC GLUCOSE Routine 05/30/2017 8:45 PM MOTOR INSTALLER ARTERIAL BLOOD GAS STAT 05/30/2017 8:40 PM MOTOR INSTALLER POC GLUCOSE Routine 05/30/2017 6:47 PM MOTOR INSTALLER POC GLUCOSE Routine 05/30/2017 3:13 PM MOTOR INSTALLER POC GLUCOSE Routine 05/30/2017 2:23 PM MOTOR INSTALLER POC GLUCOSE Routine 05/30/2017 11:50 AM MOTOR INSTALLER PREPARE FRESH FROZEN Timed 05/30/2017 PLASMA 10:27 AM MOTOR INSTALLER PREPARE PLATELET PHERESIS Timed 05/30/2017 10:27 AM MOTOR INSTALLER PREPARE RBC Timed 05/30/2017 10:27 AM MOTOR INSTALLER TYPE AND SCREEN Timed 05/30/2017 10:27 AM MOTOR INSTALLER POC GLUCOSE Routine 05/30/2017 7:27 AM MOTOR INSTALLER ZZESTIMATED GFR Routine 05/30/2017 5:15 AM MOTOR INSTALLER HC COMPLETE BLD COUNT Routine 05/30/2017 W/AUTO DIFF 5:15 AM MOTOR INSTALLER BASIC METABOLIC PANEL Routine 05/30/2017 5:15 AM MOTOR INSTALLER POC GLUCOSE Routine 05/30/2017 5:03 AM MOTOR INSTALLER POC GLUCOSE Routine 05/30/2017 12:36 AM MOTOR INSTALLER POC GLUCOSE Routine 05/29/2017 9:23 PM MOTOR INSTALLER POC GLUCOSE Routine 05/29/2017 5:11 PM MOTOR INSTALLER HEMODIALYSIS Routine 05/29/2017 5:06 PM MOTOR INSTALLER XR CHEST 1 VW PORTABLE Routine 05/29/2017 11:29 AM MOTOR INSTALLER POC GLUCOSE Routine 05/29/2017 11:02 AM MOTOR INSTALLER POC GLUCOSE Routine 05/29/2017 7:41 AM MOTOR INSTALLER POC GLUCOSE Routine 05/29/2017 5:26 AM MOTOR INSTALLER ZZESTIMATED GFR Routine 05/29/2017 4:00 AM MOTOR INSTALLER BASIC METABOLIC PANEL Routine 05/29/2017 4:00 AM MOTOR INSTALLER POC GLUCOSE Routine 05/29/2017 12:21 AM MOTOR INSTALLER POC GLUCOSE Routine 05/28/2017 8:32 PM MOTOR INSTALLER POC GLUCOSE Routine 05/28/2017 4:56 PM MOTOR INSTALLER POC GLUCOSE Routine 05/28/2017 11:54 AM MOTOR INSTALLER POC GLUCOSE Routine 05/28/2017 7:58 AM MOTOR INSTALLER POC GLUCOSE Routine 05/28/2017 5:02 AM MOTOR INSTALLER POC GLUCOSE Routine 05/28/2017 1:04 AM MOTOR INSTALLER POC GLUCOSE Routine 05/27/2017 8:43 PM MOTOR INSTALLER POC GLUCOSE Routine 05/27/2017 5:27 PM MOTOR INSTALLER POC GLUCOSE Routine 05/27/2017 11:15 AM MOTOR INSTALLER POC GLUCOSE Routine 05/27/2017 7:48 AM MOTOR INSTALLER CBC HEMOGRAM Routine 05/27/2017 5:49 AM MOTOR INSTALLER TROPONIN Routine 05/27/2017 12:00 AM MOTOR INSTALLER ZZESTIMATED GFR Routine 05/27/2017 12:00 AM MOTOR INSTALLER PHOSPHORUS LEVEL Routine 05/27/2017 12:00 AM MOTOR INSTALLER IONIZED CALCIUM Routine 05/27/2017 12:00 AM MOTOR INSTALLER MAGNESIUM LEVEL Routine 05/27/2017 12:00 AM MOTOR INSTALLER BASIC METABOLIC PANEL Routine 05/27/2017 12:00 AM MOTOR INSTALLER POC GLUCOSE Routine 05/26/2017 8:59 PM MOTOR INSTALLER HEMODIALYSIS Routine 05/26/2017 4:51 PM MOTOR INSTALLER POC GLUCOSE Routine 05/26/2017 4:34 PM MOTOR INSTALLER POC GLUCOSE Routine 05/26/2017 11:35 AM MOTOR INSTALLER POC GLUCOSE Routine 05/26/2017 7:31 AM MOTOR INSTALLER POC GLUCOSE Routine 05/26/2017 3:02 AM MOTOR INSTALLER ZZESTIMATED GFR Routine 05/26/2017 2:00 AM MOTOR INSTALLER PHOSPHORUS LEVEL Routine 05/26/2017 2:00 AM MOTOR INSTALLER MAGNESIUM LEVEL Routine 05/26/2017 2:00 AM MOTOR INSTALLER IONIZED CALCIUM Routine 05/26/2017 2:00 AM MOTOR INSTALLER BASIC METABOLIC PANEL Routine 05/26/2017 2:00 AM MOTOR INSTALLER HC COMPLETE BLD COUNT Routine 05/26/2017 W/AUTO DIFF 1:50 AM MOTOR INSTALLER POC GLUCOSE Routine 05/25/2017 11:55 PM MOTOR INSTALLER POC GLUCOSE Routine 05/25/2017 7:49 PM MOTOR INSTALLER HEPATITIS B SURFACE Routine 05/25/2017 ANTIGEN 7:22 PM MOTOR INSTALLER HEMODIALYSIS Routine 05/25/2017 5:57 PM MOTOR INSTALLER ECHOCARDIOGRAM 2D STAT 05/25/2017 COMPLETE W MMODE SPECTRAL 5:47 PM MOTOR INSTALLER COLOR DOPPLER ([id number]) POC GLUCOSE Routine 05/25/2017 4:24 PM MOTOR INSTALLER HEMOGLOBIN & HEMATOCRIT Routine 05/25/2017 12:28 PM MOTOR INSTALLER TROPONIN Routine 05/25/2017 12:26 PM MOTOR INSTALLER POC GLUCOSE Routine 05/25/2017 11:56 AM MOTOR INSTALLER US CAROTID DUPLEX Routine 05/25/2017 BILATERAL 9:00 AM MOTOR INSTALLER POC GLUCOSE Routine 05/25/2017 7:19 AM MOTOR INSTALLER HEMOGLOBIN & HEMATOCRIT Timed 05/25/2017 5:37 AM MOTOR INSTALLER POC GLUCOSE Routine 05/25/2017 3:49 AM MOTOR INSTALLER [place] INSERT Routine 05/25/2017 Pulmonary insufficiency CATH,ART,PERCUT,SHORTTERM 2:52 AM MOTOR INSTALLER GRAM STAIN Routine 05/25/2017 2:45 AM MOTOR INSTALLER SPUTUM CULTURE Routine 05/25/2017 2:45 AM MOTOR INSTALLER BLOOD CULTURE, AEROBIC & Routine 05/25/2017 ANAEROBIC 2:30 AM MOTOR INSTALLER BLOOD CULTURE, AEROBIC & Routine 05/25/2017 ANAEROBIC 1:40 AM MOTOR INSTALLER URINALYSIS SCREEN AND Routine 05/25/2017 MICROSCOPY, WITH REFLEX 1:30 AM MOTOR INSTALLER TO CULTURE GRAM STAIN Routine 05/25/2017 1:30 AM MOTOR INSTALLER URINE CULTURE Routine 05/25/2017 1:30 AM MOTOR INSTALLER XR CHEST 1 VW PORTABLE STAT 05/25/2017 1:21 AM MOTOR INSTALLER ECG 12-LEAD STAT 05/25/2017 1:18 AM MOTOR INSTALLER IONIZED CALCIUM, ARTERIAL STAT 05/25/2017 1:05 AM MOTOR INSTALLER ARTERIAL BLOOD GAS STAT 05/25/2017 1:05 AM MOTOR INSTALLER TYPE AND SCREEN STAT 05/25/2017 1:00 AM MOTOR INSTALLER POC GLUCOSE Routine 05/25/2017 12:56 AM MOTOR INSTALLER ZZESTIMATED GFR STAT 05/25/2017 12:55 AM MOTOR INSTALLER THYROID STIMULATING STAT 05/25/2017 HORMONE 12:55 AM MOTOR INSTALLER HEMOGLOBIN A1C STAT 05/25/2017 12:55 AM MOTOR INSTALLER HEPATIC FUNCTION PANEL STAT 05/25/2017 12:55 AM MOTOR INSTALLER PROTHROMBIN TIME WITH INR STAT 05/25/2017 12:55 AM MOTOR INSTALLER PHOSPHORUS LEVEL STAT 05/25/2017 12:55 AM MOTOR INSTALLER PARTIAL THROMBOPLASTIN STAT 05/25/2017 TIME (PTT) 12:55 AM MOTOR INSTALLER MAGNESIUM LEVEL STAT 05/25/2017 12:55 AM MOTOR INSTALLER CBC HEMOGRAM STAT 05/25/2017 12:55 AM MOTOR INSTALLER BASIC METABOLIC PANEL STAT 05/25/2017 12:55 AM MOTOR INSTALLER after 03/08/2017 Results * POC glucose (06/06/2017 12:25 PM CDT) Only the most recent of 67 results within the time period is included. POC glucose 154 (H) 65 - 99 mg/dL [facility] DEPARTMENT OF Comment: PATHOLOGY AND [facility] Notified RN GENOMIC MEDICINE Meter ID: [id number] Pocket Builder: Armando Soto Performing Organization Address [facility] [place] [address] PATHOLOGY AND GENOMIC MEDICINE * Estimated GFR (06/05/2017 4:00 AM CDT) Only the most recent of 12 results within the time period is included. GFR Non Af Amer 6 (A) mL/min/1.73 m2 [facility] DEPARTMENT OF PATHOLOGY AND GENOMIC MEDICINE GFR Af Amer 7 (A) mL/min/1.73 m2 [facility] DEPARTMENT OF Comment: PATHOLOGY AND Chronic kidney disease: <60 GENOMIC MEDICINE mL/min/1.73m2 Kidney failure: <15 mL/min/1.73m2 The estimated GFR is calculated from the IDMS-traceable Modification of Diet in Renal Disease Equation. The accuracy of the calculation is poor when the creatinine is normal. Calculated values >90 mL/min/1.73m2 are not reported. This equation has not been validated in children (<18 years), women, the elderly (>70 years), or ethnic groups other than Caucasians and Americans. Specimen Plasma specimen Performing Organization Address City/[facility] Phone Number [place] [phone] PATHOLOGY AND GENOMIC MEDICINE * CBC with platelet and differential (06/05/2017 4:00 AM CDT) Only the most recent of 8 results within the time period is included. WBC 8.31 4.50 - 11.00 k/uL [facility] DEPARTMENT OF PATHOLOGY AND GENOMIC MEDICINE RBC 2.65 (L) 4.20 - 5.50 m/uL [facility] DEPARTMENT OF PATHOLOGY AND GENOMIC MEDICINE HGB 8.3 (L) 12.0 - 16.0 g/dL [facility] DEPARTMENT OF PATHOLOGY AND GENOMIC MEDICINE HCT 25.6 (L) 37.0 - 47.0 % [facility] DEPARTMENT OF PATHOLOGY AND GENOMIC MEDICINE MCV 96.6 82.0 - 100.0 fL [facility] DEPARTMENT OF PATHOLOGY AND GENOMIC MEDICINE MCH 31.3 27.0 - 34.0 pg [facility] DEPARTMENT OF PATHOLOGY AND GENOMIC MEDICINE MCHC 32.4 31.0 - 37.0 g/dL [facility] DEPARTMENT OF PATHOLOGY AND GENOMIC MEDICINE RDW - SD 50.9 37.0 - 55.0 fL [facility] DEPARTMENT OF PATHOLOGY AND GENOMIC MEDICINE MPV 10.0 8.8 - 13.2 fL [facility] DEPARTMENT OF PATHOLOGY AND GENOMIC MEDICINE Platelet count 306 150 - 400 k/uL [facility] DEPARTMENT OF PATHOLOGY AND GENOMIC MEDICINE Nucleated RBC 0.00 /100 WBC [facility] DEPARTMENT OF PATHOLOGY AND GENOMIC MEDICINE Neutrophils 64.0 39.0 - 69.0 % [facility] DEPARTMENT OF PATHOLOGY AND GENOMIC MEDICINE Lymphocytes 26.5 25.0 - 45.0 % [facility] DEPARTMENT OF PATHOLOGY AND GENOMIC MEDICINE Monocytes 7.9 0.0 - 10.0 % [facility] DEPARTMENT OF PATHOLOGY AND GENOMIC MEDICINE Eosinophils 0.7 0.0 - 5.0 % [facility] DEPARTMENT OF PATHOLOGY AND GENOMIC MEDICINE Basophils 0.2 0.0 - 1.0 % [facility] DEPARTMENT OF PATHOLOGY AND GENOMIC MEDICINE Immature granulocytes 0.7Comment: "Immature 0.0 - 1.0 % [facility] DEPARTMENT OF granulocytes" (promyelocytes, PATHOLOGY AND myelocytes, metamyelocytes) [facility] Specimen Blood Performing Organization Address City/State/Zipcode Phone Number [facility] DEPARTMENT OF [address] [place] [address] PATHOLOGY AND GENOMIC MEDICINE * Basic metabolic panel (06/05/2017 4:00 AM CDT) Only the most recent of 12 results within the time period is included. Sodium 132 (L) 135 - 148 mEq/L [facility] DEPARTMENT OF PATHOLOGY AND GENOMIC MEDICINE Potassium 4.0 3.5 - 5.0 mEq/L [facility] DEPARTMENT OF PATHOLOGY AND GENOMIC MEDICINE Chloride 88 (L) 98 - 112 mEq/L [facility] DEPARTMENT OF PATHOLOGY AND GENOMIC MEDICINE CO2 23 (L) 24 - 31 mEq/L [facility] DEPARTMENT OF PATHOLOGY AND GENOMIC MEDICINE Anion gap 21 (H) 7 - 15 mEq/L [facility] DEPARTMENT OF Comment: PATHOLOGY AND Starting from June [employer] [facility]ICINE , anion gap calculation no longer incorporates potassium. Please note the change. BUN 72 (H) 8 - 23 mg/dL [facility] DEPARTMENT OF PATHOLOGY AND GENOMIC MEDICINE Creatinine 7.2 (H) 0.5 - 0.9 mg/dL [facility] DEPARTMENT OF PATHOLOGY AND GENOMIC MEDICINE Glucose 208 (H) 65 - 99 mg/dL [facility] DEPARTMENT OF PATHOLOGY AND GENOMIC MEDICINE Calcium 8.5 (L) 8.8 - 10.2 mg/dL [facility] DEPARTMENT OF PATHOLOGY AND GENOMIC MEDICINE Specimen Plasma specimen Performing Organization Address [facility] [place] [address] PATHOLOGY AND GENOMIC MEDICINE * Vitamin D 25 hydroxy level (06/04/2017 4:00 AM CDT) Vitamin D, 25-hydroxy 8.4 (L) 30.0 - 150.0 ng/mL [facility] DEPARTMENT OF Comment: PATHOLOGY AND This assay reports the sum of GENOMIC MEDICINE 25-hydroxy vitamin D3 and 25-hydroxy vitamin D2. Reference range: 0-17 years: Deficiency: less than 20ng/mL Optimum level: greater than or equal to 20 ng/mL. 18 years and older: Deficiency: less than 20ng/mL Insufficiency: 20-29 ng/mL Optimum Level: 30-80 ng/mL The assay reportable range is 3.4155.9 ng/mL. Levels higher than 150 ng/mL may be associated with toxicity. If toxicity is clinically suspected and the reported result is >155.9 ng/mL,contact lab for alternative methods to obtain a definitivelevel. If separate quantitation of 25-hydroxy vitamin D3 and 25-hydroxy vitamin D2 is needed, please contact lab for alternative methods. Specimen Blood Performing Organization Address [facility] [place] [address] PATHOLOGY AND GENOMIC MEDICINE * Thyroid stimulating hormone (06/04/2017 4:00 AM CDT) Only the most recent of 2 results within the time period is included. TSH 0.97 0.27 - 4.20 uIU/mL [facility] DEPARTMENT OF PATHOLOGY AND GENOMIC MEDICINE Specimen Plasma specimen Performing Organization Address [facility] [address] PATHOLOGY AND GENOMIC MEDICINE * T4, free (06/04/2017 4:00 AM CDT) T4, free 1.3 0.9 - 1.7 ng/dL [facility] DEPARTMENT OF PATHOLOGY AND GENOMIC MEDICINE Specimen Plasma specimen Performing Organization Address [facility] Phone Number [facility] DEPARTMENT OF [address] [place] [address] PATHOLOGY AND GENOMIC MEDICINE * Lipid panel (06/04/2017 4:00 AM CDT) Cholesterol 174 <200 mg/dL [facility] DEPARTMENT OF PATHOLOGY AND GENOMIC MEDICINE Triglycerides 340 (H) <150 mg/dL [facility] DEPARTMENT OF PATHOLOGY AND GENOMIC MEDICINE HDL cholesterol 36 (L) >40 mg/dL [facility] DEPARTMENT OF PATHOLOGY AND GENOMIC MEDICINE LDL cholesterol 88Comment: Result obtained by <100 mg/dL [facility] DEPARTMENT OF direct LDL measurement PATHOLOGY AND GENOMIC MEDICINE Lipid panel SeeBelow [facility] DEPARTMENT OF interpretation Comment: PATHOLOGY AND Total Cholesterol GENOMIC MEDICINE (mg/dL) <200 Desirable 200-239Borderline -high >=240High Triglycerides (mg/dL) <150 Normal 150-199Borderline -high 200-499High >=500Very high HDL Cholesterol (mg/dL) <40Low (male) <40Low (female) LDL Cholesterol (mg/dL) <100 Optimal 100-129Near or above optimal 130-159Borderline -high 160-189High >=190Very high Risk Catergories that modify LDL goals. Risk Catergories LDL goal (mg/dL) CHD and CHD risk equivalent<100 (10-year risk >20%) Multiple (2+) risk factors <130 (10-year risk=<20%) 0-1 risk factors <160 (<10-year risk) Defining levels of lipids in metabolic syndrome Triglycerides >=150 mg/dL HDL Cholesterol Men <40 mg/dL Women <40 mg/dL Non-HDL cholesterol is a second target for therapy in persons with high triglycerides (>=200 mg/dL) Specimen Plasma specimen Performing Organization Address City/[facility] Phone Number [facility] DEPARTMENT OF [address] [place] [address] PATHOLOGY AND GENOMIC MEDICINE * ECG 12 lead (06/03/2017 8:01 AM MOTOR INSTALLER) Only the most recent of 6 results within the time period is included. Ventricular rate 74 [facility]USE Atrial rate 74 [facility] MUSE W[place] interval 116 [facility] QRSD interval 96 [facility] QT interval 410 [facility] QTC interval 455 [facility] P axis 1 44 [facility] MUSE QRS axis 1 -6 [facility] MUSE T wave axis 64 [facility] MUSE EKG impression Normal sinus rhythm-Normal [facility] MUSE ECG-In automated comparison with ECG of 02-JUN-2017 08:49,-No significant change was found- Performing Organization Address City/[facility]/Zipcode Phone Number [facility] [address] [place] [address] * CBC hemogram (06/02/2017 4:00 AM MOTOR INSTALLER) Only the most recent of 3 results within the time period is included. WBC 9.44 4.50 - 11.00 k/uL [facility] DEPARTMENT OF PATHOLOGY AND GENOMIC MEDICINE RBC 2.67 (L) 4.20 - 5.50 m/uL [facility] DEPARTMENT OF PATHOLOGY AND GENOMIC MEDICINE HGB 8.4 (L) 12.0 - 16.0 g/dL [facility] DEPARTMENT OF PATHOLOGY AND GENOMIC MEDICINE HCT 27.1 (L) 37.0 - 47.0 % [facility] DEPARTMENT OF PATHOLOGY AND GENOMIC MEDICINE MCV 101.5 (H) 82.0 - 100.0 fL [facility] DEPARTMENT OF PATHOLOGY AND GENOMIC MEDICINE MCH 31.5 27.0 - 34.0 pg [facility] DEPARTMENT OF PATHOLOGY AND GENOMIC MEDICINE MCHC 31.0 31.0 - 37.0 g/dL [facility] DEPARTMENT OF PATHOLOGY AND GENOMIC MEDICINE RDW - SD 59.6 (H) 37.0 - 55.0 fL [facility] DEPARTMENT OF PATHOLOGY AND GENOMIC MEDICINE MPV 10.1 8.8 - 13.2 fL [facility] DEPARTMENT OF PATHOLOGY AND GENOMIC MEDICINE Platelet count 192 150 - 400 k/uL [facility] DEPARTMENT OF PATHOLOGY AND GENOMIC MEDICINE Nucleated RBC 0.00 /100 WBC [facility] DEPARTMENT OF PATHOLOGY AND GENOMIC MEDICINE Specimen Blood Performing Organization Address [facility] Phone Number [facility] DEPARTMENT OF [address] [place] [phone] PATHOLOGY AND GENOMIC MEDICINE * Phosphorus level (06/02/2017 12:00 AM MOTOR INSTALLER) Only the most recent of 6 results within the time period is included. Phosphorus 7.9 (H) 2.4 - 4.5 mg/dL [facility] DEPARTMENT OF PATHOLOGY AND GENOMIC MEDICINE Specimen Plasma specimen Performing Organization Address City/[facility] Phone Number [facility] DEPARTMENT [address] [address] PATHOLOGY AND GENOMIC MEDICINE * Magnesium level (06/02/2017 12:00 AM MOTOR INSTALLER) Only the most recent of 7 results within the time period is included. Magnesium 2.8 (H) 1.6 - 2.4 mg/dL [facility] DEPARTMENT OF PATHOLOGY AND GENOMIC MEDICINE Specimen Plasma specimen Performing Organization Address City/[facility] Phone Number [facility] DEPARTMENT OF [address] [place] [address] PATHOLOGY AND GENOMIC MEDICINE * Ionized calcium (06/02/2017 12:00 AM MOTOR INSTALLER) Only the most recent of 4 results within the time period is included. pH 7.52 [facility] DEPARTMENT OF PATHOLOGY AND GENOMIC MEDICINE Ionized calcium 0.90 (L) 1.11 - 1.32 mmol/L [facility] DEPARTMENT OF PATHOLOGY AND GENOMIC MEDICINE Specimen Plasma specimen Performing Organization Address [facility] Phone Number [facility] DEPARTMENT OF [address] [place] [address] PATHOLOGY AND GENOMIC MEDICINE * XR Chest 1 Vw Portable (06/01/2017 9:39 AM MOTOR INSTALLER) Only the most recent of 6 results within the time period is included. Narrative Performed At EXAMINATION:XR CHEST 1 VW PORTABLE RADIANT CLINICAL HISTORY:chest tube removal COMPARISON: June 01, 2017 . IMPRESSION: 1.Heart size is normal. Median sternotomy wires overlie the midline. 2.There has been interval removal of a [place] catheter with a sheath remaining in place. 3.There is atelectasis in lung bases. No pneumothorax. Interstitial opacities have improved. 4.Osseous structures are intact. [facility]-[id number] Procedure Note Interface, Radiology Results Incoming - 06/01/2017 9:45 AM MOTOR INSTALLER EXAMINATION: XR CHEST 1 VW PORTABLE CLINICAL HISTORY: chest tube removal COMPARISON: June 01, 2017 . IMPRESSION: 1. Heart size is normal. Median sternotomy wires overlie the midline. 2. There has been interval removal of a [place]-Andreina catheter with a sheath remaining in place. 3. There is atelectasis in lung bases. No pneumothorax. Interstitial opacities have improved. 4. Osseous structures are intact. [facility]-[id number] Performing Organization Address [facility] Phone Number [facility] [address] [place] [address] * Potassium, syringe (06/01/2017 6:26 AM MOTOR INSTALLER) Only the most recent of 7 results within the time period is included. Potassium, syringe 6.3 (HH) 3.5 - 5.0 mEq/L [facility] DEPARTMENT OF Comment: PATHOLOGY AND Specimen is not hemolyzed. GENOMIC MEDICINE _K__results called to and read back by LIZET HAMMONDS/VIV (name/location) at06:3503 ___ (date/time) by PXN_. Specimen Blood Performing Organization Address City/[facility]/Zipcode Phone Number [facility] [place] [address] PATHOLOGY AND GENOMIC MEDICINE * Partial thromboplastin time, activated (06/01/2017 12:30 AM MOTOR INSTALLER) Only the most recent of 3 results within the time period is included. PTT 27.6 23.0 - 36.0 sec [facility] DEPARTMENT OF Comment: PATHOLOGY AND PTT therapeutic range for [facility] MEDICINE unfractionated heparin is 61.0-112.0 seconds which corresponds to Anti-Xa 0.3-0.7 U/ml. Specimen Blood Performing Organization Address [facility] [place] [address] PATHOLOGY AND [employer] [facility]INE * Prothrombin time with INR (06/01/2017 12:30 AM MOTOR INSTALLER) Only the most recent of 4 results within the time period is included. Prothrombin time 15.6 (H) 12.0 - 15.0 sec [facility] DEPARTMENT OF PATHOLOGY AND GENOMIC MEDICINE INR 1.2 [facility] DEPARTMENT OF Comment: PATHOLOGY AND The International Normalized [facility] MEDICINE Ratio (INR) is a therapeutic monitoring tool for patients who are stable on oral anticoagulant therapy. An INR of 2.0-3.0 is suggested for deep vein thrombosis/pulmonary embolism. Specimen Blood Performing Organization Address City/[facility]/Zipcode Phone Number [facility] [place] [address] PATHOLOGY AND [employer] MEDICINE * Ionized calcium, arterial (05/31/2017 6:32 PM MOTOR INSTALLER) Only the most recent of 8 results within the time period is included. Ionized calcium, arterial 1.13 1.11 - 1.32 mmol/L [facility] DEPARTMENT OF PATHOLOGY AND GENOMIC MEDICINE Specimen Blood Performing Organization Address City/[facility]/Zipcode Phone Number [facility] [place] [address] PATHOLOGY AND GENOMIC MEDICINE * Arterial blood gas (05/31/2017 6:32 PM MOTOR INSTALLER) Only the most recent of 4 results within the time period is included. pH, arterial 7.40 7.35 - 7.45 [facility] DEPARTMENT OF PATHOLOGY AND GENOMIC MEDICINE pCO2, arterial 37 35 - 45 mmHg [facility] DEPARTMENT OF PATHOLOGY AND GENOMIC MEDICINE pO2, arterial 130 (H) 80 - 90 mmHg [facility] DEPARTMENT OF PATHOLOGY AND GENOMIC MEDICINE Bicarbonate, arterial 22.7 21.0 - 28.0 mmol/L [facility] DEPARTMENT OF PATHOLOGY AND GENOMIC MEDICINE Base excess, arterial -1 -2 - 2 mEq/L [facility] DEPARTMENT OF PATHOLOGY AND GENOMIC MEDICINE O2 saturation, arterial 99 95 - 100 % [facility] DEPARTMENT OF PATHOLOGY AND GENOMIC MEDICINE Specimen Blood Performing Organization Address City/[facility] [place] [address] PATHOLOGY AND GENOMIC MEDICINE * Sodium level, syringe (05/31/2017 5:45 PM MOTOR INSTALLER) Only the most recent of 6 results within the time period is included. Sodium, syringe 135 135 - 148 mEq/L [facility] DEPARTMENT OF PATHOLOGY AND GENOMIC MEDICINE Specimen Blood Performing Organization Address City/[facility] [place] [address] PATHOLOGY AND GENOMIC [facility] * Hemoglobin, syringe (05/31/2017 5:45 PM MOTOR INSTALLER) Only the most recent of 6 results within the time period is included. Hemoglobin, syringe 9.5 (L) 12.0 - 16.0 g/dL [facility] DEPARTMENT OF PATHOLOGY AND GENOMIC MEDICINE Specimen Blood Performing Organization Address City/[facility] [place] [address] PATHOLOGY AND GENOMIC MEDICINE * Glucose level, syringe (05/31/2017 5:45 PM MOTOR INSTALLER) Only the most recent of 6 results within the time period is included. Glucose, syringe 165 (H) 65 - 99 mg/dL [facility] DEPARTMENT OF PATHOLOGY AND GENOMIC MEDICINE Specimen Blood Performing Organization Address City/[facility] [place] [address] PATHOLOGY AND GENOMIC MEDICINE * Arterial blood gas, corrected (05/31/2017 5:45 PM MOTOR INSTALLER) Only the most recent of 6 results within the time period is included. pH, arterial 7.34 (L) 7.35 - 7.45 [facility] DEPARTMENT OF PATHOLOGY AND GENOMIC MEDICINE pCO2, arterial 44 35 - 45 mmHg [facility] DEPARTMENT OF PATHOLOGY AND GENOMIC MEDICINE pO2, arterial 121 (H) 80 - 90 mmHg [facility] DEPARTMENT OF PATHOLOGY AND GENOMIC MEDICINE Temperature, Celsius 37.0 Degrees C [facility] DEPARTMENT OF PATHOLOGY AND GENOMIC MEDICINE O2 saturation, arterial 97 95 - 100 % [facility] DEPARTMENT OF PATHOLOGY AND GENOMIC MEDICINE pH, arterial corrected 7.34 [facility] DEPARTMENT OF PATHOLOGY AND GENOMIC MEDICINE pCO2, arterial corrected 44 mmHg [facility] DEPARTMENT OF PATHOLOGY AND GENOMIC MEDICINE pO2, arterial corrected 121 mmHg [facility] DEPARTMENT OF PATHOLOGY AND GENOMIC MEDICINE Base excess, arterial -2 -2 - 2 mEq/L [facility] DEPARTMENT OF PATHOLOGY AND GENOMIC MEDICINE Specimen Blood Performing Organization Address City/[facility] [address] PATHOLOGY AND GENOMIC MEDICINE * Fibrinogen (05/31/2017 4:54 PM MOTOR INSTALLER) Fibrinogen 411 200 - 450 mg/dL [facility] DEPARTMENT OF PATHOLOGY AND GENOMIC MEDICINE Specimen Blood Performing Organization Address City/[facility] [place] [address] PATHOLOGY AND GENOMIC MEDICINE * Platelet count (05/31/2017 4:54 PM MOTOR INSTALLER) Platelet count 205 150 - 400 k/uL [facility] DEPARTMENT OF PATHOLOGY AND GENOMIC MEDICINE Performing Organization Address City/[facility] [place] [address] PATHOLOGY AND [employer] MEDICINE * Respiratory pathogen panel (05/31/2017 9:35 AM MOTOR INSTALLER) Respiratory pathogen Negative for all pathogens [facility] DEPARTMENT OF panel tested: PATHOLOGY AND Negative for Adenovirus GENOMIC MEDICINE Negative for Coronavirus HKU1 Negative for Coronavirus NL63 Negative for Coronavirus 229E Negative for Coronavirus OC43 Negative for Human Metapneumovirus Negative for Rhinovirus/Enterovirus Negative for Influenza A Negative for Influenza A/H1 Negative for Influenza A/H3 Negative for Influenza A/H1-2009 Negative for Influenza B Negative for Parainfluenza Virus 1 Negative for Parainfluenza Virus 2 Negative for Parainfluenza Virus 3 Negative for Parainfluenza Virus 4 Negative for Respiratory Syncytial Virus Negative for Bordetella pertussis Negative for Chlamydophila pneumoniae Negative for Mycoplasma pneumoniae This real-time PCR assay detects the presence of nucleic acids (RNA or DNA) for the respiratory pathogens listed. A result of "Not-detected" does not exclude the possibility of the presence of one or more pathogens at concentrations less than the detectable limits of the assay. Comment: Specimen Information Specimen Source: Nares Specimen Site: Not specified Specimen Nares - Not specified Performing Organization Address [facility] [place] [address] PATHOLOGY AND [employer] MEDICINE * Potassium level (05/31/2017 8:35 AM MOTOR INSTALLER) Potassium 5.7 (H) 3.5 - 5.0 mEq/L [facility] DEPARTMENT PATHOLOGY AND [employer] MEDICINE Specimen Plasma specimen Performing Organization Address [facility] [place] [address] PATHOLOGY AND [employer] MEDICINE * CK-MB (05/30/2017 10:49 PM MOTOR INSTALLER) CK-MB 2.6 1.0 - 5.3 ng/mL [facility] DEPARTMENT OF PATHOLOGY AND [employer] MEDICINE Specimen Plasma specimen Performing Organization Address [facility] [place] [facility] [place] [address] PATHOLOGY AND [employer] MEDICINE * Troponin (05/30/2017 10:49 PM MOTOR INSTALLER) Only the most recent of 3 results within the time period is included. Troponin <0.30 0.00 - 0.30 ng/mL [facility] DEPARTMENT OF Comment: PATHOLOGY AND 0.30 - 1.49 GENOMIC MEDICINE ng/mlMay indicate increased risk of acute coronary syndrome. >=1.5 ng/ml Consistent with acute myocardial infarction. The diagnostic value of a single normal or non-diagnostic result is questionable.Serial samples at 2-6 hour intervals are required to rule out acute myocardial injury. Specimen Plasma specimen Performing Organization Address [facility] [place] [address] PATHOLOGY AND [employer] MEDICINE * Creatine kinase, total (CPK) (05/30/2017 10:49 PM MOTOR INSTALLER) Creatine kinase 145 26 - 192 U/L [facility] DEPARTMENT PATHOLOGY AND [employer] MEDICINE Specimen Plasma specimen Performing Organization Address [facility] [place] [place] [address] PATHOLOGY AND GENOMIC MEDICINE * Prepare RBC, 4 Units (05/30/2017 10:27 AM MOTOR INSTALLER) Product name Red Blood Cells -1, Leukored [facility] DEPARTMENT OF PATHOLOGY AND GENOMIC MEDICINE Unit number [id number] [facility] DEPARTMENT OF PATHOLOGY AND GENOMIC MEDICINE Product code [id number] [facility] DEPARTMENT OF PATHOLOGY AND GENOMIC MEDICINE Dispense status Transfused [facility] DEPARTMENT OF PATHOLOGY AND GENOMIC MEDICINE Blood expiration date [facility] DEPARTMENT OF PATHOLOGY AND GENOMIC MEDICINE Blood type code 6200 [facility] DEPARTMENT OF PATHOLOGY AND GENOMIC MEDICINE Blood type A POSITIVE [facility] DEPARTMENT OF PATHOLOGY AND GENOMIC MEDICINE Product name Red Blood Cells -1, Leukored [facility] DEPARTMENT OF PATHOLOGY AND GENOMIC MEDICINE Unit number [id number] [facility] DEPARTMENT OF PATHOLOGY AND GENOMIC MEDICINE Product code [id number] [facility] DEPARTMENT OF PATHOLOGY AND GENOMIC MEDICINE Dispense status Transfused [facility] DEPARTMENT OF PATHOLOGY AND GENOMIC MEDICINE Blood expiration date [facility] DEPARTMENT OF PATHOLOGY AND GENOMIC MEDICINE Blood type code 6200 [facility] DEPARTMENT OF PATHOLOGY AND GENOMIC MEDICINE Blood type A POSITIVE [facility] DEPARTMENT OF PATHOLOGY AND GENOMIC MEDICINE Product name Apheresis -1 LR #1 [facility] DEPARTMENT OF PATHOLOGY AND GENOMIC MEDICINE Unit number [id number] [facility] DEPARTMENT OF PATHOLOGY AND GENOMIC MEDICINE Product code [id number] [facility] DEPARTMENT OF PATHOLOGY AND GENOMIC MEDICINE Dispense status Returned to BB not transfused [facility] DEPARTMENT OF PATHOLOGY AND GENOMIC MEDICINE Blood expiration date [facility] DEPARTMENT OF PATHOLOGY AND GENOMIC MEDICINE Blood type code 6200 [facility] DEPARTMENT OF PATHOLOGY AND GENOMIC MEDICINE Blood type A POSITIVE [facility] DEPARTMENT OF PATHOLOGY AND GENOMIC MEDICINE Product name Red Blood Cells -1, Leukored [facility] DEPARTMENT OF PATHOLOGY AND GENOMIC MEDICINE Unit number [id number] [facility] DEPARTMENT OF PATHOLOGY AND GENOMIC MEDICINE Product code [id number] [facility] DEPARTMENT OF PATHOLOGY AND GENOMIC MEDICINE Dispense status Returned to BB not transfused [facility] DEPARTMENT OF PATHOLOGY AND GENOMIC MEDICINE Blood expiration date [facility] DEPARTMENT OF PATHOLOGY AND GENOMIC MEDICINE Blood type code 6200 [facility] DEPARTMENT OF PATHOLOGY AND GENOMIC MEDICINE Blood type A POSITIVE [facility] DEPARTMENT OF PATHOLOGY AND GENOMIC MEDICINE Performing Organization Address City/State/Zipcode Phone Number [facility] DEPARTMENT [address] [address] PATHOLOGY AND GENOMIC MEDICINE * Type and screen (05/30/2017 10:27 AM MOTOR INSTALLER) Only the most recent of 2 results within the time period is included. ABO grouping A [facility] DEPARTMENT OF PATHOLOGY AND GENOMIC MEDICINE Rh type POS [facility] DEPARTMENT OF PATHOLOGY AND GENOMIC MEDICINE Antibody screen (gel) NEG [facility] DEPARTMENT OF PATHOLOGY AND GENOMIC MEDICINE Specimen Blood Performing Organization Address City/[facility]/Zipcode Phone Number [facility] DEPARTMENT OF [address] [place] [address] PATHOLOGY AND GENOMIC MEDICINE * Hepatitis B surface antigen (05/25/2017 7:22 PM MOTOR INSTALLER) Hepatitis B surface Ag Non-reactive Non-reactive [facility] DEPARTMENT OF PATHOLOGY AND GENOMIC MEDICINE Specimen Blood Performing Organization Address City/[facility] Phone Number [facility] DEPARTMENT OF [address] [place] [address] PATHOLOGY AND GENOMIC MEDICINE * Hemodialysis (05/25/2017 5:57 PM MOTOR INSTALLER) Narrative Performed At Aryan Holbrook Jr., MD 05/25/20175:57 PM Hemodialysis Procedure Note Indication: ESRD Revaclear 300 x 3.5 hours UF as tolerated Na 140 K 3 HCO3 35 Ca 2.5 Qb 350 cc/min Anticoagulation: saline flushes only Aryan Holbrook M.D. [facility] [phone] * Echocardiogram complete w contrast and 3D if needed (05/25/2017 5:47 PM MOTOR INSTALLER) Narrative Performed At [facility] Echocardiography Report [address] [facility], [facility] [address], [place] [address] Pat.Name:OLGA SANCHEZ.ID:[id number] .Date: 05/25/2017Refer.MD:YOSEF JETER MD Exam Time: 3:13:00 PMStudy Type:Routine Echo Weight:178lb DOBAge:1955,61Y Sex: FEMALEBP:118/52 HR:89 bpmSonogrphr: BRANDI Luis Pat. Stat.:Inpatient Room:[place] [address] Study Status:Final Echo Event ID:[id number] Order ID:[id number] Reason for Study:ACS Procedures:2D Echo, Colorflow Doppler, Portable, Stat, Intravenous Definity Contrast Race:C SUMMARY: LV EF is normal.The anterolateral apex is hypokinetic. RV systolic function is normal. LV relaxation is impaired. LV filling pressure is elevated. FINDINGS: LV: LV size is normal. LV EF is normal. Estimated EF is 55-59%. RV: RV size is normal. RV systolic function is normal. RV wall motionis normal. LA: LA volume is moderately enlarged. RA: RA size is normal. AO: Aortic root diameter is normal. MEGHA: No pericardial effusion. AV: No structural AV abnormalities noted. MV: Mild mitral annular calcification. Mild mitral regurgitation. PV: No structural PV abnormalities noted. TV: No structural TV abnormalities noted. A trace of tricuspid regurgitation Robbins: LV relaxation is impaired. LV filling pressure is elevated. Other:Estimated PA systolic pressure is 46 mmHg, assuming a mean RAPof 10 mmHg. MEASUREMENTS: DOPPLER LVOT Stroke Vol LVOT 1.7 cmLVOT SV 50.8 ml LVOT TVI22.4 cmLVOT CO4.6 l/min LVOT Tm297 mkjlCM50 bpm MV For Flow/Valve Assess MV pkVel 143.2 cm/sMV Dec T 342 msec MV pkPG8.2 mmHgMV TVI28.2 cm MV Mean G4.4 mmHgMV Area P1/2t2.2 cm2(4-6) 2D Parasternal [place] Ao An2 cmLVPWd0.9 cm LVOT 1.7 cmLA Ds4.1 cm LVIDd4.6 cmAo Rtd 3.1 cm LVIDs3.2 cmLV Dsin822.1 g(87-129) LV%fs 29.8 % RWT0.4 IVSd 1.1 cm LA Sng Plane LA Area 24.6 cm2(8.8-23.4) LA Vol82.8 ml LA LngAx 6 cm RA Sng Plane RA Area 12.9 cm2(8.3-19.5) RA Vol31 ml RA LngAx 4.7 cm WALL MOTION: RESTING WALL MOTION: Apical Anterior, Apical Lateral, Apical ascencio are hypokinetic. Normal in all other ascencio. Wall Index=1.2 Signed 05/25/2017 07:03 PM Carlie Esquivel M.D. Procedure Note Interface, Radiology Results In - 05/25/2017 7:03 PM [facility] Echocardiography Report [id number]Name: OLGA SANCHEZ Pat.ID: [id number] .Date: 05/25/2017 Refer.MD: YOSEF JETER MD Exam Time: 3:13:00 PM Study Type:Routine Echo Weight: 178lb Age: 8 1955,61Y Sex: FEMALE BP: 118/52 HR: 89 bpm Sonogrphr: BRANDI Luis Pat. Stat.:Inpatient Room: [place] [address] Study Status:Final Echo Event ID:[id number] Order ID: [id number] Reason for Study:ACS Procedures:2D Echo, Colorflow Doppler, Portable, Stat, Intravenous Definity Contrast Race: C SUMMARY: LV EF is normal. The anterolateral apex is hypokinetic. RV systolic function is normal. LV relaxation is impaired. LV filling pressure is elevated. FINDINGS: LV: LV size is normal. LV EF is normal. Estimated EF is 55-59%. RV: RV size is normal. RV systolic function is normal. RV wall motion is normal. LA: LA volume is moderately enlarged. RA: RA size is normal. AO: Aortic root diameter is normal. MEGHA: No pericardial effusion. AV: No structural AV abnormalities noted. MV: Mild mitral annular calcification. Mild mitral regurgitation. PV: No structural PV abnormalities noted. TV: No structural TV abnormalities noted. A trace of tricuspid regurgitation Robbins: LV relaxation is impaired. LV filling pressure is elevated. Other: Estimated PA systolic pressure is 46 mmHg, assuming a mean RAP of 10 mmHg. MEASUREMENTS: DOPPLER LVOT Stroke Vol LVOT 1.7 cm LVOT SV 50.8 ml LVOT TVI 22.4 cm LVOT CO 4.6 l/min LVOT Tm 297 msec HR 91 bpm MV For Flow/Valve Assess MV pkVel 143.2 cm/s MV Dec T 342 msec MV pkPG 8.2 mmHg MV TVI 28.2 cm MV Mean G 4.4 mmHg MV Area P1/2t 2.2 cm2 (4-6) 2D Parasternal [place] Ao An 2 cm LVPWd 0.9 cm LVOT 1.7 cm LA Ds 4.1 cm LVIDd 4.6 cm Ao Rtd 3.1 cm LVIDs 3.2 cm LV Mass 161.1 g (87-129) LV%fs 29.8 % RWT 0.4 IVSd 1.1 cm LA Sng Plane LA Area 24.6 cm2 (8.8-23.4) LA Vol 82.8 ml LA LngAx 6 cm RA Sng Plane RA Area 12.9 cm2 (8.3-19.5) RA Vol 31 ml RA LngAx 4.7 cm WALL MOTION: RESTING WALL MOTION: Apical Anterior, Apical Lateral, Apical ascencio are hypokinetic. Normal in all other ascencio. Wall Index=1.2 Signed 05/25/2017 07:03 PM Carlie Esquivel M.D. Performing Organization Address [facility] Phone Number [facility] [address] [place] [address] * Hemoglobin & hematocrit (05/25/2017 12:28 PM MOTOR INSTALLER) Only the most recent of 2 results within the time period is included. HGB 8.2 (L) 12.0 - 16.0 g/dL [facility] DEPARTMENT OF PATHOLOGY AND GENOMIC MEDICINE HCT 26.3 (L) 37.0 - 47.0 % [facility] DEPARTMENT OF PATHOLOGY AND GENOMIC MEDICINE Specimen Blood Performing Organization Address [facility] [place] [facility] DEPARTMENT OF [address] [place] [address] PATHOLOGY AND GENOMIC MEDICINE * Pv carotid duplex (05/25/2017 9:00 AM MOTOR INSTALLER) Narrative Performed At [facility] Vascular Ultrasound Laboratory Carotid Artery Duplex Report [address] [place] [address] For quality improvement engineer purposes, the categorization of the degree of the stenosis of this exam is based on criteria described in the IAC carotid stenosis grading white paper( www.intersocietal.org/Vascular) and Rogers Rollins., Stan Bales., et al. Carotid artery stenosis: alfredo-scale and Doppler US diagnosis--Society of Radiologists in Ultrasound Consensus Conference. Radiology. 2003 Nov; 229(2):340-6. Pat.Name:OLGA SANCHEZ.ID:[id number] St.Date: 05/25/2017Refer.MD:YOSEF JETER MD Exam Time: 8:29:00 AMStudy Type:Carotid DOBAge:1955,61Y Sex: FEMALE Sonogrphr: Vandana Hernandez RVT Pat. Stat.:Inpatient Room:[place] [address] TapeVol: ALLY, CPT - 4: 89454 Echo Event ID:[id number] Order ID:[id number] Reason for Study:Pre-operative CV exam for CAB, Hx of CAD, ESRD on HD, NSTEMI, Essential HTN. Race:C SUMMARY: PHYSICAL ASSESSMENT BloodPulsesCarotid Pressure Carotid TemporalBruit Right art cjcl794/43 ++0 Left ___ ++0 CAROTID ARTERY SCAN RIGHT:There is smooth intimal lining in the common carotid artery. There is hard and calcified plaque noted in the bulb extending into the internal and external carotid artery.Colorflow is disturbed with elevated velocities noted.. LEFT:There is smooth intimal lining in the common carotid artery. There is hard and calcified plaque noted in the bulb extending into the internal and external carotid artery.Colorflow is disturbed with elevated velocities noted.. PRELIMINARY FINDINGS 1. 50-69% stenosis of the right bulb/internal carotid artery. 2. >50% stenosis in the external carotid artery, bilaterally. 3. Elevated velocity noted in the right subclavian artery. PHYSICIAN INTERPRETATION Hard calcified plaque seen in right and left bulb extending into internal and external carotid arteries bilaterally. Greater than 50% stenosis of the right external carotid artery. Greater than 50% stenosis of the left external carotid artery. Greater than 50 % stenosis of the right subclavian artery. Less than 50% stenosis in the bulb and internal carotid artery, bilaterally. ( soft right ICA plaque) Both vertebral arteries are antegrade. Carotid Findings:RightLeft Verteb.Flw AntegradeAntegrade Subclavian Biphasic Triphasic MEASUREMENTS: DOPPLER Right CCA Dist CCA Dist PSV 100 cm/sCCA Dist EDV28.9 cm/s Right CCA Mid CCA Mid [id number] cm/sCCA Mid EDV 25.7 cm/s Right CCA Prox CCA Prox PSV 115 cm/sCCA Prox EDV20.8 cm/s Right ECA Prox ECA Prox PSV 203 cm/sECA Prox EDV 0 cm/s Right ICA Dist ICA Dist PSV 125 cm/Caron Dist EDV30.4 cm/s Right ICA Mid ICA Mid VCT170 cm/Caron Mid EDV 37.2 cm/s Right ICA Prox ICA Prox PSV 128 cm/Caron Prox EDV31.3 cm/s Right Vertebral Vertebral PSV 75.8 cm/sVertebral EDV 19.2 cm/s Right Subclavian Subclavian PSV 209 cm/sSubclavian EDV 0 cm/s Left CCA Dist CCA Dist PSV94 cm/sCCA Dist EDV28 cm/s Left CCA Mid CCA Mid MOX920 cm/sCCA Mid EDV 17.6 cm/s Left CCA Prox CCA Prox PSV 142 cm/sCCA Prox EDV31.3 cm/s Left ECA Prox ECA Prox PSV 239 cm/sECA Prox EDV 0 cm/s Left ICA Mid ICA Mid IIV913 cm/Caron Mid EDV 35.3 cm/s Left ICA Prox ICA Prox PSV 123 cm/Caron Prox EDV32.9 cm/s Left Vertebral Vertebral FMH861 cm/sVertebral EDV 35.2 cm/s Left Subclavian Subclavian PSV 179 cm/sSubclavian EDV29.5 cm/s Left ICA Dist ICA Dist PSV 117 cm/Caron Dist EDV35 cm/s Right ICA/CCA Ratio ICA/CCA PSV 1.06 Left ICA/CCA Ratio ICA/CCA PSV 1.16 Signed 05/25/2017 04:32 PM Rancho Pineda MD, RPVI Procedure Note Interface, Radiology Results In - 05/25/2017 4:34 PM [facility] Vascular Ultrasound Laboratory Carotid Artery Duplex Report [id number] [address] For quality improvement engineer purposes, the categorization of the degree of the stenosis of this exam is based on criteria described in the IAC carotid stenosis grading white paper( www.intersocietal.org/Vascular) and Rogers Rollins., Stan Bales., et al. Carotid artery stenosis: alfredo-scale and Doppler US diagnosis--Society of Radiologists in Ultrasound Consensus Conference. Radiology. 2003 Nov; 229(2):340-6. Pat.Name: OLGA SANCHEZ.ID: [id number] .Date: 05/25/2017 Refer.MD: YOSEF JETER MD Exam Time: 8:29:00 AM Study Type:Carotid Age: 8 1955,61Y Sex: FEMALE Sonogrphr: Vandana Hernandez RVT Pat. Stat.:Inpatient Room: [address] Vol: SD, CPT - 4: 14275 Echo Event ID:[id number] Order ID: [id number] Reason for Study:Pre-operative CV exam for CAB, Hx of CAD, ESRD on HD, NSTEMI, Essential HTN. Race: C SUMMARY: PHYSICAL ASSESSMENT Blood Pulses Carotid Pressure Carotid Temporal Bruit Right art line 119/43 + + 0 Left ___ + + 0 CAROTID ARTERY SCAN RIGHT: There is smooth intimal lining in the common carotid artery. There is hard and calcified plaque noted in the bulb extending into the internal and external carotid artery. Colorflow is disturbed with elevated velocities noted.. LEFT: There is smooth intimal lining in the common carotid artery. There is hard and calcified plaque noted in the bulb extending into the internal and external carotid artery. Colorflow is disturbed with elevated velocities noted.. PRELIMINARY FINDINGS 1. 50-69% stenosis of the right bulb/internal carotid artery. 2. >50% stenosis in the external carotid artery, bilaterally. 3. Elevated velocity noted in the right subclavian artery. PHYSICIAN INTERPRETATION Hard calcified plaque seen in right and left bulb extending into internal and external carotid arteries bilaterally. Greater than 50% stenosis of the right external carotid artery. Greater than 50% stenosis of the left external carotid artery. Greater than 50 % stenosis of the right subclavian artery. Less than 50% stenosis in the bulb and internal carotid artery, bilaterally. ( soft right ICA plaque) Both vertebral arteries are antegrade. Carotid Findings: Right Left Verteb.Flw Antegrade Antegrade Subclavian Biphasic Triphasic MEASUREMENTS: DOPPLER Right CCA Dist CCA Dist PSV 100 cm/s CCA Dist EDV 28.9 cm/s Right CCA Mid CCA Mid PSV 121 cm/s CCA Mid EDV 25.7 cm/s Right CCA Prox CCA Prox PSV 115 cm/s CCA Prox EDV 20.8 cm/s Right ECA Prox ECA Prox PSV 203 cm/s ECA Prox EDV 0 cm/s Right ICA Dist ICA Dist PSV 125 cm/s ICA Dist EDV 30.4 cm/s Right ICA Mid ICA Mid PSV 138 cm/s ICA Mid EDV 37.2 cm/s Right ICA Prox ICA Prox PSV 128 cm/s ICA Prox EDV 31.3 cm/s Right Vertebral Vertebral PSV 75.8 cm/s Vertebral EDV 19.2 cm/s Right Subclavian Subclavian PSV 209 cm/s Subclavian EDV 0 cm/s Left CCA Dist CCA Dist PSV 94 cm/s CCA Dist EDV 28 cm/s Left CCA Mid CCA Mid PSV 106 cm/s CCA Mid EDV 17.6 cm/s Left CCA Prox CCA Prox PSV 142 cm/s CCA Prox EDV 31.3 cm/s Left ECA Prox ECA Prox PSV 239 cm/s ECA Prox EDV 0 cm/s Left ICA Mid ICA Mid PSV 123 cm/s ICA Mid EDV 35.3 cm/s Left ICA Prox ICA Prox PSV 123 cm/s ICA Prox EDV 32.9 cm/s Left Vertebral Vertebral PSV 104 cm/s Vertebral EDV 35.2 cm/s Left Subclavian Subclavian PSV 179 cm/s Subclavian EDV 29.5 cm/s Left ICA Dist ICA Dist PSV 117 cm/s ICA Dist EDV 35 cm/s Right ICA/CCA Ratio ICA/CCA PSV 1.06 Left ICA/CCA Ratio ICA/CCA PSV 1.16 Signed 05/25/2017 04:32 PM Rancho Pineda MD, RPVI Performing Organization Address [facility] Phone Number [facility] [address] [place] [address] * Insert arterial line (05/25/2017 2:52 AM MOTOR INSTALLER) Narrative Performed At Chantal Cohen NP 05/25/20172:54 AM Arterial Line Insertion Date/Time: 05/25/2017 2:52 AM Performed by: CHANTAL COHEN Authorized by: CHANTAL COHEN Consent: Consent obtained:Emergent situation [place] protocol: Immediately prior to procedure a time out was called: yes Patient identity confirmed:Arm band and hospital-assigned identification number Indications: Indications: hemodynamic monitoring and multiple ABGs Pre-procedure details: Skin preparation:2% Chlorhexidine Preparation: Patient was prepped and draped in sterile fashion Sedation: Sedation type: propofol gtt. Anesthesia (see MAR for exact dosages): Anesthesia method:Local infiltration Local anesthetic:Lidocaine 1% w/o epi Procedure details: Location:R radial David's test performed: yes David's test abnormal: no Needle gauge:20 G Placement technique:Seldinger and ultrasound guided Number of attempts:1 Transducer: waveform confirmed Post-procedure details: Post-procedure:Secured with tape, sterile dressing applied and sutured CMS:Normal Patient tolerance of procedure:Tolerated well, no immediate complications * Sputum culture (05/25/2017 2:45 AM MOTOR INSTALLER) Sputum culture isolate Normal oral ministerio isolated. [facility] DEPARTMENT OF Comment: PATHOLOGY AND Specimen Information GENOMIC MEDICINE Specimen Source: Sputum Specimen Site: Induced Specimen Sputum - Induced Performing Organization Address City/[facility]/Zipcode Phone Number [facility] DEPARTMENT OF [address] [place] [address] PATHOLOGY AND GENOMIC MEDICINE * Gram stain (05/25/2017 2:45 AM MOTOR INSTALLER) Only the most recent of 2 results within the time period is included. Gram stain isolate Moderate WBC's [facility] DEPARTMENT OF No organisms seen PATHOLOGY AND Comment: GENOMIC MEDICINE Specimen Information Specimen Source: Sputum Specimen Site: Induced Specimen Sputum - Induced Performing Organization Address [facility] [place] Phone [place] [address] [address] PATHOLOGY AND GENOMIC MEDICINE * Blood culture, aerobic & anaerobic (05/25/2017 2:30 AM MOTOR INSTALLER) Only the most recent of 2 results within the time period is included. Blood culture isolate No growth after 5 days of [facility] DEPARTMENT OF incubation. PATHOLOGY AND Comment: GENOMIC MEDICINE Specimen Information Specimen Source: Blood Specimen Site: Radial, right Specimen Blood - Radial, right Performing Organization Address [facility] [place] Number [facility] [address] [place] [address] PATHOLOGY AND GENOMIC MEDICINE * Urinalysis screen and microscopy, with reflex to culture (05/25/2017 1:30 AM MOTOR INSTALLER) Specimen site Carr [facility] DEPARTMENT OF PATHOLOGY AND GENOMIC MEDICINE Color, UA Straw [facility] DEPARTMENT OF PATHOLOGY AND GENOMIC MEDICINE Appearance, UA Clear [facility] DEPARTMENT OF PATHOLOGY AND GENOMIC MEDICINE Specific gravity, UA 1.013 1.001 - 1.035 [facility] DEPARTMENT OF PATHOLOGY AND GENOMIC MEDICINE pH, UA 8.0 5.0 - 8.5 [facility] DEPARTMENT OF PATHOLOGY AND GENOMIC MEDICINE Protein, UA 2+ (A) Negative [facility] DEPARTMENT OF PATHOLOGY AND GENOMIC MEDICINE Glucose, UA 3+ (A) Negative [facility] DEPARTMENT OF PATHOLOGY AND GENOMIC MEDICINE Ketones, UA Negative Negative [facility] DEPARTMENT OF PATHOLOGY AND GENOMIC MEDICINE Bilirubin, UA Negative Negative [facility] DEPARTMENT OF PATHOLOGY AND GENOMIC MEDICINE Blood, UA Small (A) Negative [facility] DEPARTMENT OF PATHOLOGY AND GENOMIC MEDICINE Nitrite, UA Negative Negative [facility] DEPARTMENT OF PATHOLOGY AND GENOMIC MEDICINE Urobilinogen, UA <2.0 <2.0 [facility] DEPARTMENT OF PATHOLOGY AND GENOMIC MEDICINE Leukocyte esterase, UA Trace (A) Negative [facility] DEPARTMENT OF PATHOLOGY AND GENOMIC MEDICINE Epithelial cells, UA 2 /HPF [facility] DEPARTMENT OF PATHOLOGY AND GENOMIC MEDICINE WBC, UA 6 (H) 0 - 4 /HPF [facility] DEPARTMENT OF PATHOLOGY AND GENOMIC MEDICINE RBC, UA 8 (H) 0 - 2 /HPF [facility] DEPARTMENT OF PATHOLOGY AND GENOMIC MEDICINE Bacteria, UA None seen None seen [facility] DEPARTMENT OF PATHOLOGY AND GENOMIC MEDICINE Yeast, UA None seen [facility] DEPARTMENT OF PATHOLOGY AND GENOMIC MEDICINE Yeast with pseudohyphae, None seen [facility] DEPARTMENT OF UA PATHOLOGY AND GENOMIC MEDICINE Specimen Urine Performing Organization Address City/[facility] Phone Number [address] [address] PATHOLOGY AND GENOMIC MEDICINE * Urine culture (05/25/2017 1:30 AM MOTOR INSTALLER) Urine culture isolate No growth after 2 days. [facility] DEPARTMENT OF Comment: PATHOLOGY AND Specimen Information GENOMIC MEDICINE Specimen Source: Urine Specimen Site: [place] Specimen Urine - Carr Performing Organization Address [facility]/Zipcode Phone Number [address] [address] PATHOLOGY AND GENOMIC MEDICINE * Hemoglobin A1c (05/25/2017 12:55 AM MOTOR INSTALLER) Hemoglobin A1C 7.1 (H) 4.0 - 5.6 % [facility] DEPARTMENT OF Comment: PATHOLOGY AND HbA1c cutoffs for diagnosing GENOMIC MEDICINE diabetes: 4.0% - 5.6%=normal 5.7% - 6.4%=increased risk for diabetes (prediabetes) >=6.5%=diabetes Goals for glycemic control (ADA 2016) < 7.0%Target for non adults with diabetes. More or less stringent targets may be appropriate for individual patients. <7.5% Target for Children and adolescents with type 1 diabetes. Specimen Blood Performing Organization Address City/[facility] Phone Number [address] [address] PATHOLOGY AND GENOMIC MEDICINE * Hepatic function panel (05/25/2017 12:55 AM MOTOR INSTALLER) Albumin 2.7 (L) 3.5 - 5.0 g/dL [facility] DEPARTMENT OF PATHOLOGY AND GENOMIC MEDICINE Total bilirubin 0.8 0.0 - 1.2 mg/dL [facility] DEPARTMENT OF PATHOLOGY AND GENOMIC MEDICINE Bilirubin direct 0.3 0.0 - 0.3 mg/dL [facility] DEPARTMENT OF PATHOLOGY AND GENOMIC MEDICINE Alkaline phosphatase 60 35 - 104 U/L [facility] DEPARTMENT OF PATHOLOGY AND GENOMIC MEDICINE Protein 7.4 6.3 - 8.3 g/dL [facility] DEPARTMENT OF Comment: PATHOLOGY AND GENOMIC MEDICINE 4.6-7.0 g/dL 1 week 4.4-7.6 g/dL 7 months-1year 5.1-7.3 g/dL 1-2 years5.6-7 .5 g/dL >3 years6.0-8 .0 g/dL 18-150 6.3-8.3 g/dL ALT 13 5 - 50 U/L [facility] DEPARTMENT OF PATHOLOGY AND GENOMIC MEDICINE AST 37 (H) 10 - 35 U/L [facility] DEPARTMENT OF PATHOLOGY AND GENOMIC MEDICINE Specimen Plasma specimen Performing Organization Address City/State/Zipcode Phone Number [facility] DEPARTMENT OF [address] [place] [address] PATHOLOGY AND GENOMIC MEDICINE after 03/08/2017 Insurance Payer Benefit Subscriber ID Type Phone Address Plan / Group HUMANA MEDICARE HUMANA HMO xxxxxxxxx HMO GOLD PLUS MEDICARE Advance Directives Patient has advance care planning documents on file. For more information, shanique mccall contact: Mina Nguyen [address] [place] [address]
== END 2018-03-09 19:35 | disposition left against medical advice (07) ==
LOC: ER 17:24
DX: E11.649 Type 2 diabetes mellitus with hypoglycemia without coma (principal); R55 Syncope and collapse; R42 Dizziness and giddiness; I10 Essential (primary) hypertension; I51.9 Heart disease, unspecified; Z95.5 Presence of coronary angioplasty implant and graft
CPT/HCPCS: 36415; 82948; 99283

== ENCOUNTER 2019-02-13 14:34 | Inpatient (IN) | payer MEDICARE ==
[~2019-02-13] VITALS: Ht 157.5 cm; Wt 86.6 kg
[2019-02-13] MEDS ORDERED: FUROSEMIDE40 MG PO (15:31)
[2019-02-13] MEDS ORDERED: LASIX40 MG PO (15:31)
[2019-02-13] MEDS ORDERED: CAPSAICIN60 GM TOP (15:31)
[2019-02-13] MEDS ORDERED: RENAGEL800 MG PO (15:31)
[2019-02-13] MEDS ORDERED: SENSIPAR30 MG PO (15:31)
[2019-02-13] MEDS ORDERED: CALCITRIOL0.25 MCG PO (15:31)
[2019-02-13] MEDS ORDERED: CARVEDILOL3.125 MG PO (15:31)
[2019-02-13] MEDS ORDERED: LYRICA75 MG PO (15:31)
[2019-02-13] MEDS ORDERED: CO Q-10100 MG PO (15:31)
[2019-02-13] MEDS ORDERED: CHOLESTYRAMINE P4 GM PO (15:31)
[2019-02-13] MEDS ORDERED: ASPIRIN EC81 MG PO (15:31)
[2019-02-13] MEDS ORDERED: ATORVASTATIN CA20 MG PO (15:31)
[2019-02-13] MEDS ORDERED: MIDODRINE HCL2.5 MG PO (15:31)
[2019-02-13] MEDS ORDERED: NOVOLIN 70100 UNIT/3 SC ×2 (15:31)
[2019-02-13] MEDS ORDERED: ISOSORBIDE MONO30 MG PO (15:31)
[2019-02-13 18:19] VITALS: BP 132/60
[2019-02-13 18:20] VITALS: BP 132/60
[2019-02-13] MEDS ORDERED: DEXTROSE 50% SYRINGE 50 ML IV PRN (18:30)
[2019-02-13] MEDS ORDERED: CHOLESTYRAMINE 4 GM PACKET PO PRN (18:30)
[2019-02-13] MEDS ORDERED: SODIUM CHLORIDE 0.9% 1000ML 1,000 ML IV SCH (18:30)
--- NOTE | 2019-02-13 19:08 | NUR ---
per Dr. Cabrera's request, called [facility] and set up STAT peritoneal dialysis for [facility] 02/13/19. spoke with Amira
[2019-02-13 19:26] LABS: BASOPHILS # (AUTO) 0.1 (0.0-0.1); BASOPHILS % 0.7 % (0.0-1.0); EOSINOPHILS # (AUTO) 0.4 (0.0-0.4); EOSINOPHILS % 3.7 % (0.0-6.0); HEMATOCRIT 36.4 % (34.2-44.1); HEMOGLOBIN 11.4 g/dL (12.0-16.0); LYMPHOCYTES # (AUTO) 2.9 (1.0-3.2); LYMPHOCYTES % 29.4 % (18.0-39.1); MEAN CORPUSCULAR HEMOGLOBIN 33.5 pg (28-32); MEAN CORPUSCULAR HGB CONC 31.3 g/dL (31-35); MEAN CORPUSCULAR VOLUME 107.1 fL (81-99); MONOCYTES # (AUTO) 0.8 (0.2-0.8); MONOCYTES % 8.6 % (4.4-11.3); NEUTROPHILS # (AUTO) 5.6 (2.1-6.9); NEUTROPHILS % 57.1 % (38.7-80.0); PLATELET COUNT 192 x10e3/uL (140-360); RED CELL DISTRIBUTION WIDTH 17.1 % (11.7-14.4)
[2019-02-13 19:44] LABS: ALANINE AMINOTRANSFERASE 30 IU/L (0-55); ALBUMIN 2.9 g/dL (3.5-5.0); ALBUMIN/GLOBULIN RATIO 0.6 (0.8-2.0); ALKALINE PHOSPHATASE 102 IU/L (40-150); ANION GAP 20.6 mmol/L (8-16); BLOOD UREA NITROGEN 41 mg/dL (7-26); BUN/CREATININE RATIO 3 (6-25); CALCIUM 7.9 mg/dL (8.4-10.2); CARBON DIOXIDE 20 mmol/L (22-29); CHLORIDE 104 mmol/L (98-107); CHOL/HDL RATIO 6.1 (3.0-3.6); CHOLESTEROL 227 MD/DL (0-199); CREATINE KINASE 232 IU/L (29-168); CREATININE, SERUM 12.61 mg/dL (0.57-1.11); EST GLOMERULAR FILTRATION RATE 3 ML/MIN (60-); GLUCOSE 146 mg/dL (74-118); HDL CHOLESTEROL 37 MG/DL (40-60); POTASSIUM 4.6 mmol/L (3.5-5.1); SODIUM 140 mmol/L (136-145); TRIGLYCERIDES 435 MG/DL (0-149)
--- NOTE | 2019-02-13 19:44 | Diagnostic Imaging Report ---
EXAM: CHEST SINGLE (PORTABLE) DATE: 02/13/2019 6:07 PM INDICATION: Foot infection ^cxr ^[id number] ^[id number] ^Y COMPARISON: Chest x-ray, 05/23/2017 FINDINGS: Lines and tubes: None. ET tube and NG tube have been removed since previous exam. There is moderate enlargement of the cardiac silhouette. There is mild central pulmonary vascular prominence. No peripheral consolidation, pleural effusion or pneumothorax. There has been interval chest surgery with sternotomy sutures now present. Upper abdomen unremarkable. IMPRESSION: Cardiomegaly with mild central pulmonary vascular prominence. No consolidation or pleural effusion. Signed by: Dr. Blair Bhatti M.D. on 02/13/2019 7:41 PM
[2019-02-13 19:57] LABS: ERYTHROCYTE SEDIMENTATION RATE 101 mm/hr (0-20)
--- NOTE | 2019-02-13 20:01 | NUR ---
RECEIVED PT IN BED AOX3 .RT FOOT GANGRENE C/O MILD PAIN .CALL LIGHT WITH IN REACH .RT AC 20 G S/L .CALL LIGHT WITH IN REACH.CONTINUE TO MONITOR
[2019-02-13 20:04] LABS: THYROID STIMULATING HORMONE 1.437 uIU/mL (0.350-4.940)
[2019-02-13] MEDS: INSULIN LISPRO 100 UNIT/1 ML 3ML VIAL SQ SCH (21:00)
[2019-02-13] MEDS: PREGABALIN 75 MG CAP PO SCH ×2 (21:00→21:25)
[2019-02-13] MEDS: HUMULIN 70/30 VIAL SQ SCH (21:00)
[2019-02-13] MEDS ORDERED: ATORVASTATIN 40 MG TAB PO SCH (21:00)
[2019-02-13] MEDS ORDERED: ATORVASTATIN 20 MG TAB PO SCH (21:00)
[2019-02-13] MEDS: PIPERACILLIN/TAZO 2.25 GM 50 ML IV SCH (21:25)
[2019-02-14] VITALS (9 sets, daily range): BP systolic 104–123; BP diastolic 48–59
--- NOTE | 2019-02-14 01:08 | Consultation ---
DATE OF CONSULTATION: 02/13/2019 HISTORY OF PRESENT ILLNESS: Ms. Lynn Salvador is known to us of Nephrology service. She is a delightful 63-year-old lady with underlying history of type 2 diabetes, end-stage renal disease, left upper arm AV fistula, underlying hypertension, secondary hyperparathyroidism, hyperlipidemia, history of congestive heart failure, coronary artery disease, anemia, chronic kidney disease, who has been admitted with cellulitis infection of the left foot. Currently lying supine, in no apparent distress. She used to be on hemodialysis. Now, she was switched to peritoneal dialysis. ALLERGIES: SHE IS ALLERGIC TO CIPRO. MEDICATIONS: Currently started on: 1. Piperacillin. 2. Tazobactam. 3. Aspirin 81 mg daily. 4. Renagel with meals. 5. Cholestyramine. 6. Carvedilol 3.125 twice a day. 7. Atorvastatin 40 mg daily. 8. Furosemide 80 mg twice a day. 9. Calcitriol 0.25 b.i.d. 10. Insulin lispro. 11. Pregabalin 75 mg t.i.d. 12. Isosorbide 30 mg daily. SOCIAL HISTORY: The patient does not smoke or drink. FAMILY HISTORY: Significant for diabetes. PHYSICAL EXAMINATION: GENERAL: Awake, alert, oriented x3, lying supine, in no apparent distress. VITAL SIGNS: Blood pressure 132/60, pulse of 57, afebrile, oxygen saturation 99%. HEAD AND NECK: Cornea clear. Oral mucosa moist. Neck veins flat. LUNGS: Relatively clear. HEART: S1, S2 audible. ABDOMEN: Soft, nontender. PD catheter site satisfactory. No tenderness noted. Exit site good. EXTREMITIES: Lower extremity examination shows no edema. Underlying end-stage renal disease, diabetes, diabetic kidney disease. PLAN: Doing peritoneal dialysis today. We will do 2.5% dextrose alternating with 1.5%, 2 L fill, 20 minute fill, 20 minutes drain x6 exchanges. Laboratory tests pending. Nurse to call me with the results. Please see orders. MD PAWEL Miramontes/LEESA /[id number]
[2019-02-14] MEDS: PIPERACILLIN/TAZO 2.25 GM 50 ML IV SCH ×2 (05:49→14:00)
--- NOTE | 2019-02-14 05:55 | NUR ---
PT RESTED DURING THE NIGHT .PT IS HAVING PERITONEAL DALASIS DENIES PAIN .CALL LIGHT WITH IN REACH .CONTINUE TO MONITOR
--- NOTE | 2019-02-14 07:02 | NUR ---
REPORT GIVEN TO THE ONCOMING NURSE .
[2019-02-14] MEDS ORDERED: MIDODRINE 2.5 MG TAB PO SCH (08:00)
[2019-02-14] MEDS: INSULIN LISPRO 100 UNIT/1 ML 3ML VIAL SQ SCH ×4 (08:30→21:00)
[2019-02-14] MEDS: CARVEDILOL 3.125 MG TAB PO SCH ×2 (08:33→18:48)
[2019-02-14] MEDS: MIDODRINE HCL 5 MG TABLET PO SCH ×3 (08:33→16:00)
[2019-02-14] MEDS: SEVELAMER CARBONATE 800 MG TAB PO SCH ×3 (08:33→18:48)
[2019-02-14] MEDS: CALCITRIOL 0.25 MCG CAP PO SCH ×2 (08:34→18:48)
[2019-02-14] MEDS: FUROSEMIDE 40 MG TAB PO SCH ×2 (08:34→18:48)
[2019-02-14] MEDS: PREGABALIN 75 MG CAP PO SCH ×3 (08:34→21:21)
[2019-02-14] MEDS ORDERED: ISOSORBIDE MONONITRATE 30 MG TAB CR PO SCH (09:00)
[2019-02-14] MEDS ORDERED: HUMULIN 70/30 VIAL SQ SCH (09:00)
[2019-02-14] MEDS ORDERED: ASPIRIN 81 MG ENTERIC COATED PO SCH (09:00)
[2019-02-14] MEDS ORDERED: IOPAMIDOL 300MG/ML 100 ML INFUS..BTL IV ONE (14:43)
[2019-02-14] MEDS ORDERED: HEPARIN SOD/SOD CHLORIDE 2,000 ML ONE (14:43)
[2019-02-14] MEDS ORDERED: HEPARIN SOD (PORCINE) 1000 UNIT/ML 30ML ONE (14:43)
[2019-02-14] MEDS ORDERED: LIDOCAINE HCL 2% LOCAL 20 ML VIAL ONE (14:43)
[2019-02-14] MEDS ORDERED: NITROGLYCERIN/D5W 200 MCG/ML 250 ML ONE (14:44)
--- NOTE | 2019-02-14 15:11 | NUR ---
PT LEFT THE UNIT VIA STRETCHER IN STABLE CONDITION WITH THE METAL SPRAYER MACHINED PARTS NURSE
[2019-02-14] MEDS ORDERED: MIDAZOLAM HCL 2 MG/2 ML VIAL ONE (15:21)
[2019-02-14] MEDS ORDERED: FENTANYL CITRATE/PF 100MCG/2 ML INJ ONE (15:22)
[2019-02-14] MEDS ORDERED: SODIUM CHLORIDE 0.9% 1000ML 1,000 ML ONE (15:24)
--- NOTE | 2019-02-14 16:58 | History and Physical ---
This is a 63-year-old female patient of [id number] presented to me with complaint of severe pain and discoloration of the left lower leg and foot. The patient was having disability with a walk. HISTORY OF PRESENT ILLNESS: Ms. Madeleine Bailey is a 63-year-old female patient with history of diabetes mellitus, hypertension, hypertensive heart disease, history of coronary artery disease and bypass surgery, and end-stage renal disease, on peritoneal dialysis, presented with a complaint of severe pain of the both legs, but left leg is worse and left leg is having discoloration. The patient is not getting any better from outpatient treatment. PAST SURGICAL HISTORY: Left foot surgery, bilateral cataracts, and bypass surgery in 2018. MEDICATIONS: See from the list. ALLERGIES: THE PATIENT IS ALLERGIC TO CIPRO. SOCIAL HISTORY: Denies smoking. Denies using alcohol. FAMILY HISTORY: Hypertension and diabetes mellitus. REVIEW OF SYSTEMS: A detailed review of system examination was done. PHYSICAL EXAMINATION: GENERAL: She is a middle-aged female patient, lying in the bed, not in acute distress. VITAL SIGNS: Temperature 98, pulse 80, and respiratory rate 16. HEENT: Normocephalic and atraumatic. NECK: No JVD. No lymphadenopathy. LUNGS: Bilateral equal air entry. No rales or rhonchi. HEART: S1 and S2. Regular. Systolic murmur present. ABDOMEN: Soft. Bowel sounds are present. NEUROLOGICAL: The patient has a decreased peripheral sensation. EXTREMITIES: Extremity hermosillo examination of left foot, the patient has a discoloration and cold extremity, and tenderness present. ADMITTING IMPRESSION/DIAGNOSES: The patient has a left foot ischemia and diabetes mellitus with peripheral artery disease and the patient has significant bilateral femoral and popliteal disease, and carotid artery disease and coronary artery bypass surgery. The patient has end-stage renal disease and on the peritoneal dialysis. PLAN: The patient will be admitted with above diagnoses. We will treat the patient with IV antibiotic. We will do peritoneal dialysis and we will obtain Cardiology consultation, Dr. Baltazar for possible peripheral intervention with angiogram and angioplasty. We will treat the patient with IV antibiotic, IV Zosyn. MD WEI Prado/LEESA /[id number]
[2019-02-14] MEDS ORDERED: OMEGA 3 POLYUNSAT FATTY ACIDS 1000 MG SOFTGEL PO SCH (17:00)
[2019-02-14] MEDS ORDERED: HEPARIN 25,000 UNIT 1,200 UNIT in DEXTROSE 5% 250ML 250 ML IV SCH (19:00)
[2019-02-14] MEDS ORDERED: HEPARIN 25,000 UNIT 800 UNIT in DEXTROSE 5% 250ML 250 ML IV SCH (19:00)
--- NOTE | 2019-02-14 19:28 | NUR ---
RECEIVED PT IN BED AOX3 .PT IS NOW ON HEPARAN DRIP PT IS GOING TO TRANSFER TO [facility] FOR LASER SURGERY.CALL LIGHT WITH IN REACH .CONTINUE TO MONITOR
[2019-02-14] MEDS: HUMULIN 70/30 VIAL SQ SCH (21:00)
[2019-02-14] MEDS ORDERED: ALBUTEROL/IPRATROPIUM 3 ML NEB NEB PRN (21:00)
[2019-02-14] MEDS ORDERED: ATORVASTATIN 40 MG TAB PO SCH (21:00)
--- NOTE | 2019-02-14 21:15 | Operative Report ---
DATE OF PROCEDURE: 02/14/2019 SURGEON: Elliott Thorpe MD STUDY: Peripheral Angiography and Intervention. PROCEDURE INDICATION: The patient with severe peripheral arterial disease and previous revascularizations, presents with one month of tingling to left lower extremity followed by three days of worsening resting discomfort and discoloration in the forefoot preserved motor strength, some tingling, acute limb ischemic, threatened limb. PROCEDURES PERFORMED: 1. Abdominal aortogram. 2. Selective lower extremity angiography, bilateral. 3. Third-order catheter placement from right common femoral artery to left common femoral artery. 4. Additional third order catheter placement from right common femoral artery to left popliteal artery. 5. Spider FX embolic protection device deployment and expert mechanical thrombectomy attempted by [employer] of the left SFA given thrombus burden significant residual stenosis. Additional attempts aborted and the patient's right femoral artery repaired with Mynx device. 6. Procedure complications residual occlusion felt to be thrombotic acute stent thrombosis. The decision was made to proceed with transfer for high-level care for vascular surgical evaluation, consideration of surgical options this patient with history of peritoneal dialysis, diabetes, hypertension, dyslipidemia, and CAD with previous bypass as well as PAD. ESTIMATED BLOOD LOSS: Less than 50 mL. Additional angiographic evaluation reveals patent profunda femoris bilaterally with 70% area of stenosis on the right profunda femoris. The right SFA has 95, 70, 90% tandem lesions with predominant diffuse disease throughout its full extent. The popliteal, left anterior tibial, left TP trunk and left peroneal artery are patent with predominant diffuse and new disease and occluded right posterior tibial artery. There is 90% distal right anterior tibial stenosis. The left anterior tibial is 100% occluded throughout the left peroneal artery is single-vessel patent with giving rise to collaterals daily the distal most segment of the left plantar branches off the posterior tibial artery. The left posterior tibial artery and left anterior tibial artery are 100% occluded throughout images. PROCEDURE SUMMARY: After consent was obtained the patient was prepped and draped in a sterile fashion. The right femoral site was locally infiltrated with 2% lidocaine and with micropuncture kit, a 6-Cymraes sheath was placed to the right common femoral artery and a 4-Cymraes sheath to right common femoral vein given loss of peripheral IVs, previously initiating procedure to obtain venous access. Omni Flush catheter was positioned in the distal descending abdominal aorta and digital subtraction angiography of the infrarenal aorta and iliac vessels was performed revealing patent renal arteries and luminal irregularities throughout the infrarenal aorta, common iliac with 30% to 40% stenosis bilaterally, patent internal and external iliac arteries with luminal irregularities. The common femoral artery is patent bilaterally. Additional selective angiography was performed of both lower extremities with digital subtraction as well as CT angiography. The catheter position for this was to the left femoral artery as well as left popliteal artery and to the right external iliac artery for selective right lower extremity runoff. One sheath was pulled back previous to Mynx closure. It was decided to proceed with thrombectomy attempt with export, which was performed including a Spider FX after crossing the area of occlusion of the left SFA and positioned distal to the stent area into the left popliteal artery. After filter deployment expert thrombectomy was performed and smaller channel was felt to be observed for which a 4.0 and then 5.5 x 200 balloons were used to attempt to reestablish linear flow. Given significant vessel recoil and residual occlusion, it was decided to abort further attempts. Filter wire was then retrieved and after closure of Mynx device, heparin resumed. CONCLUSION: Acute limb ischemia. The patient felt not to be an ideal candidate for tPA given peritoneal dialysis and comorbidities is decided therefore transfer for vascular surgical evaluation on resuming heparin, aspirin, she has single-vessel peroneal runoff to left lower extremity and severe underlying PAD as noted to the right lower extremity multilevel femoral-popliteal [id number]-oxp-gepi vessel disease presenting with left long stented SFA with acute stent thrombosis. MD CAYLA Velazquez/MODL /[id number]
--- NOTE | 2019-02-14 22:10 | Consultation ---
DATE OF CONSULTATION: 02/14/2019 Cardiology Consultation CONSULTING PHYSICIAN: Elliott Thorpe M.D., Interventional Cardiology. REASON FOR CONSULTATION: PVD with skin changes to lower extremity. HISTORY OF PRESENT ILLNESS: Ms. Salvador is a pleasant 63-year-old woman with a history of end-stage renal disease, now on peritoneal dialysis at home, history of long-standing more than 40 year history of type 2 diabetes mellitus, dyslipidemia, mixed and uncontrolled, hypertension, morbid obesity, CAD with history of aortocoronary bypass approximately a year and a half ago at [facility], who presents with worsening discoloration of the left forefoot associated with worsening discomfort to the left calf. She also describes claudication affecting both lower extremities. She has an arterial Doppler performed as outpatient, which was remarkable for severely elevated velocities to right popliteal artery consistent with more than 75% stenosis. REVIEW OF SYSTEMS: A 12-system review is negative except for as noted above. ALLERGIES: CIPROFLOXACIN. PAST MEDICAL HISTORY: As per HPI. SOCIAL HISTORY: Former smoker. No alcohol. No drugs. No current smoking. FAMILY HISTORY: Noncontributory. PHYSICAL EXAMINATION: VITAL SIGNS: Temperature 97.6, heart rate 71, respiratory rate 18, blood pressure 113/59, O2 saturation 99% on room air. GENERAL: In no acute distress. Alert, active. NECK: No JVD. CHEST: Clear to auscultation. CARDIOVASCULAR: Regular rate and rhythm. Normal S1, S2. No S3, no S4. Systolic ejection murmur 2/6. ABDOMEN: Soft, nontender. Bowel sounds positive. EXTREMITIES: No edema. Discoloration of the forefoot to left lower extremity with subcentimeter black eschar covering the dorsal aspect of the 2nd left toe. Abnormal pedal pulses bilaterally with nonpalpable dorsalis pedis and 1+ left posterior tibial and palpable right posterior tibial pulses on exam. CARDIOVASCULAR MEDICATIONS: Reviewed Zosyn, furosemide 80 mg b.i.d., Coreg 3.125 mg b.i.d., aspirin 81 mg daily, atorvastatin 40 mg at bedtime, isosorbide mononitrate 30 mg daily. STUDIES: On 02/13/2019 studies white blood cells 9.8, hemoglobin 11.4, platelets 192. Sodium 140, potassium 4.6, chloride 104, bicarbonate 20, BUN 41, creatinine 12.6, glucose 146. Hemoglobin A1c 6.1, calcium 7.9, total bilirubin 0.4, AST 32, ALT 30, alkaline phos 102. CK 232, CK-MB 4.2, troponin I 0.814. Total protein 7.8, albumin 2.9, triglycerides 435, total cholesterol 227, HDL 37. TSH 1.4. EKG, sinus rhythm with nonspecific repolarization abnormality, LVH. Chest x-ray with cardiomegaly, mild central pulmonary vascular prominence. No consolidation or pleural effusion. ASSESSMENT: 1. Peripheral arterial disease with life-limiting claudication Racine-Gomez classification 4-5, abnormal arterial Dopplers. 2. Diabetes mellitus. 3. Hypertension. 4. CAD status post aortocoronary bypass. 5. End-stage renal disease, on peritoneal dialysis. RECOMMENDATIONS: 1. Peripheral angiography and possible endovascular intervention for PVD limb salvage procedure advised. Indications, alternatives, alternatives, risks, and benefits have been discussed with the patient who agrees to proceed. 2. Continue rest of cardiovascular medications. 3. Further recommendations to follow. I thank Dr. Jeter for the opportunity to participate in the care of Ms. Salvador. MD CAYLA Velazquez/LEESA /[id number]
--- NOTE | 2019-02-14 22:36 | Diagnostic Imaging Report ---
EXAMINATION: CHEST SINGLE (PORTABLE) INDICATION: Short of breath COMPARISON: Chest radiograph 02/13/2019 FINDINGS: AP view TUBES and LINES: None. LUNGS: Lungs are well inflated. Slight increase in peripheral pulmonary interstitial markings. Prominent pulmonary vasculature. PLEURA: No pleural effusion or pneumothorax. HEART AND MEDIASTINUM: Cardiac size is mildly enlarged. BONES AND SOFT TISSUES: No acute osseous lesion. Soft tissues are unremarkable. Sternotomy wires. UPPER ABDOMEN: No free air under the diaphragm. IMPRESSION: Mild cardiomegaly, pulmonary vascular congestion, and mild pulmonary interstitial edema. Signed by: Evre Horowitz DO on 02/14/2019 10:32 PM
--- NOTE | 2019-02-14 22:37 | NUR ---
PT WAS COMPLAINED OF SOB AND CALLED DR GOMEZ .GOT THE ORDER TO GIVE NEB TX AND CHEST XRAY .PT IS OK TO TRANSFER .
--- NOTE | 2019-02-14 22:48 | NUR ---
CALLED DR GOMEZ AND GOT THE ORDER TO TRANSFER THE PATIENT
[2019-02-15] VITALS: BP 97/51
--- NOTE | 2019-02-15 01:54 | NUR ---
PT IS TRANSFERRED TO [facility] WITH HEPARIN DRIP BY AMBULANCE /PT WAS IN STABLE CONDITION
[2019-02-15] MEDS ORDERED: CLOPIDOGREL BISULFATE 75 MG TAB PO SCH (09:00)
== END 2019-02-15 01:20 | disposition short-term general hospital (02) | DRG 270 ==
LOC: MED/SURG3 17:37 → INTOOBSV 17:37 → OBSVTOIN 17:37
PROVIDERS: ADMIT Internal Medicine; ATTEND Internal Medicine
PROC: 3E1M39Z Irrigation of Peritoneal Cavity using Dialysate, Percutaneous Approach (ICD-10-PCS; 2019-02-13)
PROC: 04CL3ZZ Extirpation of Matter from Left Femoral Artery, Percutaneous Approach (ICD-10-PCS; principal; 2019-02-14)
PROC: B41D1ZZ Fluoroscopy of Aorta and Bilateral Lower Extremity Arteries using Low Osmolar Contrast (ICD-10-PCS; 2019-02-14)
PROC: 047L3ZZ Dilation of Left Femoral Artery, Percutaneous Approach (ICD-10-PCS; 2019-02-14)
DX: E11.51 Type 2 diabetes mellitus with diabetic peripheral angiopathy without gangrene (principal); N18.6 End stage renal disease; I13.2 Hypertensive heart and chronic kidney disease with heart failure and with stage 5 chronic kidney disease, or end stage renal disease; T82.868A Thrombosis due to vascular prosthetic devices, implants and grafts, initial encounter; N25.81 Secondary hyperparathyroidism of renal origin; L03.116 Cellulitis of left lower limb; E11.22 Type 2 diabetes mellitus with diabetic chronic kidney disease; I50.9 Heart failure, unspecified; I70.223 Atherosclerosis of native arteries of extremities with rest pain, bilateral legs; I25.10 Atherosclerotic heart disease of native coronary artery without angina pectoris; Y83.1 Surgical operation with implant of artificial internal device as the cause of abnormal reaction of the patient, or of later complication, without mention of misadventure at the time of the procedure; E78.5 Hyperlipidemia, unspecified; Z68.34 Body mass index [BMI] 34.0-34.9, adult; E66.01 Morbid (severe) obesity due to excess calories; D64.9 Anemia, unspecified; Z99.2 Dependence on renal dialysis; Z79.4 Long term (current) use of insulin; Z79.82 Long term (current) use of aspirin; Z87.891 Personal history of nicotine dependence; Z95.1 Presence of aortocoronary bypass graft
CPT/HCPCS: 36247; 36415; 37224; 71045; 75625; 75716; 80053; 80061; 82550; 82553; 82948; 83036; 84443; 84484; 85025; 85651; 93005; 99152; 99153; C1725; C1757; C1760; C1766; C1769; C1887; C2623; J1644; J2001; J2250; J2543; J3010; J7030; Q9967